=== PATIENT | female | born 1955 | race Caucasian/White ===

== ENCOUNTER 2020-05-31 19:18 | Inpatient (IN) | payer MEDICARE, MEDICAID ==
[~2020-05-31] VITALS: Ht 154.9 cm; Wt 63.8 kg
[2020-05-31] MEDS ORDERED: MORPHINE SULFATE 4 MG/ML CPJ (NOT FOR IM USE) IV STA (19:58)
[2020-05-31] MEDS ORDERED: ONDANSETRON HCL 4MG/2ML INJ IV STA (19:58)
[2020-05-31 20:17] LABS: EOSINOPHILS % 1.8 % (0.0-5.0); HEMATOCRIT. 35.8 % (36.0-48.0); HEMOGLOBIN. 11.9 g/dL (12.0-16.0); LYMPHOCYTES % 27.3 % (20.0-50.0); MEAN CORPUSCULAR HEMOGLOBIN 29.2 pg (28.0-32.0); MEAN PLATELET VOLUME 9.8 fl (7.4-10.4); MONOCYTES % 6.8 % (2.0-8.0); NEUTROPHILS % 63.1 % (40.0-76.0); PLATELET 236 x1000/uL (130-400); RED BLOOD CELL COUNT 4.07 mill/uL (4.2-5.4); RED CELL DISTRIBUTION WIDTH 15.3 % (11.6-14.6)
[2020-05-31 20:24] LABS: CHLORIDE 93 mEq/L (98-107)
[2020-05-31 20:33] LABS: PROTHROMBIN TIME 10.3 sec (9.6-11.0)
[2020-05-31] MEDS ORDERED: ACETAMINOPHEN WITH CODEINE 300/30MG TABLET PO ONE (22:00)
[2020-05-31] MEDS ORDERED: LORAZEPAM 2MG/ML CPJ IV ONE (22:00)
[2020-05-31] MEDS ORDERED: NITROGLYCERIN 0.4MG TABLET SL SL PRN (22:15)
[2020-05-31] MEDS ORDERED: IPRATROPIUM/ALBUTEROL 0.5-3(2.5)MG/3ML NEB NEB PRN (22:15)
[2020-05-31] MEDS ORDERED: DOCUSATE SODIUM 100MG CAPSULE PO PRN (22:15)
[2020-05-31] MEDS ORDERED: DIPHENHYDRAMINE 50MG/ML VIAL IV PRN (22:15)
[2020-05-31] MEDS ORDERED: GUAIFENESIN 200MG/10ML SUGAR FREE UDC PO PRN (22:15)
[2020-05-31] MEDS ORDERED: DEXTROSE 50% WATER 50ML SYRINGE IV PRN (22:15)
[2020-05-31] MEDS ORDERED: MAGNESIUM/ALUMINUM HYDROXIDE/SIMETHICONE 30ML UDC PO PRN (22:15)
[2020-05-31] MEDS ORDERED: TRAMADOL 50MG TABLET PO PRN (22:15)
[2020-05-31] MEDS ORDERED: ACETAMINOPHEN 325MG TABLET PO PRN (22:15)
[2020-06-01] MEDS: CLONIDINE 0.1MG TABLET PO PRN ×2 (01:05→18:38)
[2020-06-01] MEDS ORDERED: CINA30 PO (01:56)
[2020-06-01] MEDS ORDERED: AZOPT EACHEYE (01:56)
[2020-06-01] MEDS ORDERED: ESCI20TA43 PO (01:56)
[2020-06-01] MEDS ORDERED: QUET25TA34 MT (01:56)
[2020-06-01] MEDS ORDERED: NIFE-32 PO (01:56)
[2020-06-01] MEDS ORDERED: SEVE800T8 PO (01:56)
[2020-06-01] MEDS ORDERED: CLON0.3T PO (01:56)
[2020-06-01] MEDS ORDERED: INSLIS SUBCUT (01:58)
[2020-06-01] MEDS ORDERED: INSU100I28 SQ (01:58)
[2020-06-01 01:59] VITALS: BP 191/70
[2020-06-01 04:00] VITALS: BP 165/72
[2020-06-01 04:53] LABS: CREATINE KINASE MB FRACTION 1.9 ng/mL (0.5-3.6)
[2020-06-01] MEDS ORDERED: ERGO500013 PO (06:02)
[2020-06-01] MEDS ORDERED: AZOPT RIGHTEYE ×2 (06:03→06:04)
[2020-06-01] MEDS: BLOOD SUGAR DIAGNOSTIC STRIP TEST SCH ×4 (07:39→20:04)
[2020-06-01] MEDS: INSULIN LISPRO 100 UNITS/ML SUBCUT SCH ×4 (07:40→20:33)
[2020-06-01 08:00] VITALS: BP 190/57
[2020-06-01] MEDS: AMLODIPINE 10MG TABLET PO SCH (09:04)
[2020-06-01] MEDS: FAMOTIDINE 20MG TABLET PO SCH (09:04)
[2020-06-01] MEDS: ZINC SULFATE 220 MG ( 50 ) CAPSULE PO SCH (09:04)
[2020-06-01] MEDS: ASCORBIC ACID 500 MG TABLET PO SCH ×2 (09:04→20:33)
[2020-06-01] MEDS: ACETAMINOPHEN 325MG TABLET PO PRN (09:04)
[2020-06-01] MEDS: ASPIRIN 325MG EC TABLET PO SCH (09:05)
[2020-06-01] MEDS: ENOXAPARIN 30MG/0.3ML SYR SUBCUT SCH (09:05)
[2020-06-01] MEDS: ONDANSETRON HCL 4MG/2ML INJ IV PRN ×3 (09:41→20:00)
[2020-06-01] MEDS ORDERED: INSULIN GLARGINE UD 100 UNITS/ML SYR SUBCUT SCH (10:00)
[2020-06-01 12:00] VITALS: BP 202/65
[2020-06-01] MEDS: MINOXIDIL 2.5MG TABLET PO SCH (12:57)
[2020-06-01] MEDS: BUTALBITAL/ACETAMINOPHEN/CAFFEINE 50/325/40MG TABLET PO PRN (14:53)
[2020-06-01 16:00] VITALS: BP 204/67
[2020-06-01 16:52] LABS: CREATINE KINASE MB FRACTION 2.7 ng/mL (0.5-3.6)
[2020-06-01 20:00] VITALS: BP 103/101
[2020-06-01] MEDS: ATORVASTATIN CALCIUM 40MG TABLET PO SCH (20:33)
[2020-06-02] VITALS (7 sets, daily range): BP systolic 143–190; BP diastolic 44–72
[2020-06-02] MEDS: BUTALBITAL/ACETAMINOPHEN/CAFFEINE 50/325/40MG TABLET PO PRN ×2 (01:53→09:17)
[2020-06-02 06:08] LABS: BASOPHILS % 0.9 % (0.0-2.0); EOSINOPHILS % 1.6 % (0.0-5.0); HEMATOCRIT. 36.3 % (36.0-48.0); HEMOGLOBIN. 12.2 g/dL (12.0-16.0); LYMPHOCYTES % 24.8 % (20.0-50.0); MEAN CORPUSCULAR HEMOGLOBIN 29.2 pg (28.0-32.0); MEAN CORPUSCULAR VOLUME 86.8 fL (81.0-99.0); MEAN PLATELET VOLUME 9.8 fl (7.4-10.4); MONOCYTES % 9.8 % (2.0-8.0); NEUTROPHILS % 62.9 % (40.0-76.0); PLATELET 242 x1000/uL (130-400); RED BLOOD CELL COUNT 4.19 mill/uL (4.2-5.4); RED CELL DISTRIBUTION WIDTH 15.1 % (11.6-14.6)
[2020-06-02] MEDS: BLOOD SUGAR DIAGNOSTIC STRIP TEST SCH ×4 (06:49→20:52)
[2020-06-02] MEDS: INSULIN LISPRO 100 UNITS/ML SUBCUT SCH ×4 (06:53→20:52)
[2020-06-02] MEDS: ONDANSETRON HCL 4MG/2ML INJ IV PRN ×3 (06:59→20:51)
[2020-06-02] MEDS: CLONIDINE 0.1MG TABLET PO PRN (09:09)
[2020-06-02] MEDS: MINOXIDIL 2.5MG TABLET PO SCH (09:09)
[2020-06-02] MEDS: ZINC SULFATE 220 MG ( 50 ) CAPSULE PO SCH (09:09)
[2020-06-02] MEDS: FAMOTIDINE 20MG TABLET PO SCH (09:09)
[2020-06-02] MEDS: ASCORBIC ACID 500 MG TABLET PO SCH ×2 (09:09→20:51)
[2020-06-02] MEDS: ASPIRIN 325MG EC TABLET PO SCH (09:09)
[2020-06-02] MEDS: AMLODIPINE 10MG TABLET PO SCH (09:10)
[2020-06-02] MEDS: METOPROLOL TARTRATE 25MG TABLET PO SCH ×2 (09:17→20:57)
[2020-06-02] MEDS: ENOXAPARIN 30MG/0.3ML SYR SUBCUT SCH (09:18)
[2020-06-02] MEDS: INSULIN GLARGINE UD 100 UNITS/ML SYR SUBCUT SCH (10:00)
[2020-06-02] MEDS ORDERED: MORPHINE SULFATE 4 MG/ML CPJ (NOT FOR IM USE) IV NR (11:00)
[2020-06-02] MEDS: ACETAMINOPHEN 325MG TABLET PO PRN (20:51)
[2020-06-02] MEDS: ZOLPIDEM TARTRATE 5MG TABLET PO PRN (20:51)
[2020-06-02] MEDS: ATORVASTATIN CALCIUM 40MG TABLET PO SCH (20:51)
[2020-06-03] VITALS: BP 189/64
[2020-06-03] MEDS: CLONIDINE 0.1MG TABLET PO PRN ×2 (00:55→06:41)
[2020-06-03] MEDS: BUTALBITAL/ACETAMINOPHEN/CAFFEINE 50/325/40MG TABLET PO PRN ×2 (01:00→14:02)
[2020-06-03 04:00] VITALS: BP 196/54
[2020-06-03] MEDS: INSULIN LISPRO 100 UNITS/ML SUBCUT SCH ×4 (06:42→20:33)
[2020-06-03] MEDS: BLOOD SUGAR DIAGNOSTIC STRIP TEST SCH ×4 (06:42→20:33)
[2020-06-03 08:00] VITALS: BP 146/55
[2020-06-03 08:37] LABS: BASOPHILS % 0.8 % (0.0-2.0); EOSINOPHILS % 4.1 % (0.0-5.0); HEMATOCRIT. 38.1 % (36.0-48.0); HEMOGLOBIN. 12.6 g/dL (12.0-16.0); LYMPHOCYTES % 30.5 % (20.0-50.0); MEAN CORPUSCULAR HEMOGLOBIN 29.1 pg (28.0-32.0); MEAN PLATELET VOLUME 9.7 fl (7.4-10.4); MONOCYTES % 10.4 % (2.0-8.0); NEUTROPHILS % 54.2 % (40.0-76.0); PLATELET 239 x1000/uL (130-400); RED BLOOD CELL COUNT 4.33 mill/uL (4.2-5.4); RED CELL DISTRIBUTION WIDTH 15.4 % (11.6-14.6)
[2020-06-03 09:59] LABS: PHOSPHORUS 7.2 mg/dL (2.5-4.9)
[2020-06-03] MEDS: INSULIN GLARGINE UD 100 UNITS/ML SYR SUBCUT SCH (10:00)
[2020-06-03] MEDS: ZINC SULFATE 220 MG ( 50 ) CAPSULE PO SCH (10:10)
[2020-06-03] MEDS: ASPIRIN 325MG EC TABLET PO SCH (10:11)
[2020-06-03] MEDS: AMLODIPINE 10MG TABLET PO SCH (10:11)
[2020-06-03] MEDS: ASCORBIC ACID 500 MG TABLET PO SCH ×2 (10:11→20:31)
[2020-06-03] MEDS: MINOXIDIL 2.5MG TABLET PO SCH ×2 (10:11→17:23)
[2020-06-03] MEDS: FAMOTIDINE 20MG TABLET PO SCH (10:12)
[2020-06-03] MEDS: ONDANSETRON HCL 4MG/2ML INJ IV PRN ×2 (10:12→15:19)
[2020-06-03] MEDS: METOPROLOL TARTRATE 25MG TABLET PO SCH ×2 (10:12→20:32)
[2020-06-03] MEDS: ENOXAPARIN 30MG/0.3ML SYR SUBCUT SCH (10:12)
[2020-06-03 12:00] VITALS: BP 156/50
[2020-06-03 16:00] VITALS: BP 133/47
[2020-06-03] MEDS: SEVELAMER CARBONATE 800 MG TABLET PO SCH (17:22)
[2020-06-03 20:00] VITALS: BP 174/52
[2020-06-03] MEDS: ATORVASTATIN CALCIUM 40MG TABLET PO SCH (20:31)
[2020-06-04] VITALS (7 sets, daily range): BP systolic 121–190; BP diastolic 48–74
[2020-06-04] MEDS: ZOLPIDEM TARTRATE 5MG TABLET PO PRN (00:31)
[2020-06-04] MEDS: ONDANSETRON HCL 4MG/2ML INJ IV PRN ×3 (00:31→21:53)
[2020-06-04] MEDS: MINOXIDIL 2.5MG TABLET PO SCH ×2 (06:13→17:14)
[2020-06-04] MEDS: INSULIN LISPRO 100 UNITS/ML SUBCUT SCH ×4 (06:14→21:50)
[2020-06-04] MEDS: BLOOD SUGAR DIAGNOSTIC STRIP TEST SCH ×4 (06:15→21:50)
[2020-06-04 08:47] LABS: BASOPHILS % 0.7 % (0.0-2.0); EOSINOPHILS % 2.8 % (0.0-5.0); HEMATOCRIT. 37.3 % (36.0-48.0); HEMOGLOBIN. 12.5 g/dL (12.0-16.0); LYMPHOCYTES % 23.6 % (20.0-50.0); MEAN CORPUSCULAR HEMOGLOBIN 29.5 pg (28.0-32.0); MEAN CORPUSCULAR VOLUME 87.9 fL (81.0-99.0); MEAN PLATELET VOLUME 9.5 fl (7.4-10.4); MONOCYTES % 9.8 % (2.0-8.0); NEUTROPHILS % 63.1 % (40.0-76.0); PLATELET 228 x1000/uL (130-400); RED BLOOD CELL COUNT 4.24 mill/uL (4.2-5.4); RED CELL DISTRIBUTION WIDTH 15.3 % (11.6-14.6)
[2020-06-04] MEDS ORDERED: METOCLOPRAMIDE HCL 10MG/2ML VIAL IV NR (09:00)
[2020-06-04] MEDS: ASPIRIN 325MG EC TABLET PO SCH (09:41)
[2020-06-04] MEDS: METOPROLOL TARTRATE 25MG TABLET PO SCH (09:42)
[2020-06-04] MEDS: FAMOTIDINE 20MG TABLET PO SCH (09:42)
[2020-06-04] MEDS: SEVELAMER CARBONATE 800 MG TABLET PO SCH ×3 (09:42→17:14)
[2020-06-04] MEDS: ASCORBIC ACID 500 MG TABLET PO SCH ×2 (09:42→20:52)
[2020-06-04] MEDS: AMLODIPINE 10MG TABLET PO SCH (09:42)
[2020-06-04] MEDS: ZINC SULFATE 220 MG ( 50 ) CAPSULE PO SCH (09:43)
[2020-06-04] MEDS: ENOXAPARIN 30MG/0.3ML SYR SUBCUT SCH (09:44)
[2020-06-04] MEDS: BUTALBITAL/ACETAMINOPHEN/CAFFEINE 50/325/40MG TABLET PO PRN ×2 (10:21→15:13)
[2020-06-04] MEDS: INSULIN GLARGINE UD 100 UNITS/ML SYR SUBCUT SCH (10:22)
[2020-06-04 13:49] LABS: PHOSPHORUS 4.9 mg/dL (2.5-4.9)
[2020-06-04] MEDS: CLONIDINE 0.1MG TABLET PO PRN (17:14)
[2020-06-04] MEDS: ATORVASTATIN CALCIUM 40MG TABLET PO SCH (20:52)
[2020-06-04] MEDS: METOPROLOL TARTRATE 50MG TABLET PO SCH (20:54)
[2020-06-05] VITALS: BP 160/52
[2020-06-05] MEDS: ONDANSETRON HCL 4MG/2ML INJ IV PRN ×3 (03:48→13:00)
[2020-06-05 04:00] VITALS: BP 170/53
[2020-06-05] MEDS: CLONIDINE 0.1MG TABLET PO PRN (04:29)
[2020-06-05] MEDS: ACETAMINOPHEN 325MG TABLET PO PRN ×2 (06:11→16:00)
[2020-06-05 06:24] LABS: EOSINOPHILS % 4.8 % (0.0-5.0); HEMATOCRIT. 36.6 % (36.0-48.0); HEMOGLOBIN. 12.3 g/dL (12.0-16.0); LYMPHOCYTES % 31.3 % (20.0-50.0); MEAN CORPUSCULAR HEMOGLOBIN 29.4 pg (28.0-32.0); MEAN CORPUSCULAR VOLUME 87.3 fL (81.0-99.0); MEAN PLATELET VOLUME 9.8 fl (7.4-10.4); MONOCYTES % 10.4 % (2.0-8.0); NEUTROPHILS % 52.5 % (40.0-76.0); PLATELET 238 x1000/uL (130-400); RED BLOOD CELL COUNT 4.19 mill/uL (4.2-5.4); RED CELL DISTRIBUTION WIDTH 15.3 % (11.6-14.6)
[2020-06-05] MEDS: BLOOD SUGAR DIAGNOSTIC STRIP TEST SCH ×2 (07:01→12:55)
[2020-06-05] MEDS: INSULIN LISPRO 100 UNITS/ML SUBCUT SCH ×2 (07:02→12:40)
[2020-06-05] MEDS: MINOXIDIL 2.5MG TABLET PO SCH (07:07)
[2020-06-05 07:18] LABS: PHOSPHORUS 6.1 mg/dL (2.5-4.9)
[2020-06-05 08:00] VITALS: BP 188/60
[2020-06-05] MEDS: ENOXAPARIN 30MG/0.3ML SYR SUBCUT SCH (08:39)
[2020-06-05] MEDS: ASPIRIN 325MG EC TABLET PO SCH (08:39)
[2020-06-05] MEDS: ZINC SULFATE 220 MG ( 50 ) CAPSULE PO SCH (08:40)
[2020-06-05] MEDS: ASCORBIC ACID 500 MG TABLET PO SCH (08:40)
[2020-06-05] MEDS: SEVELAMER CARBONATE 800 MG TABLET PO SCH ×2 (08:40→15:15)
[2020-06-05] MEDS: METOPROLOL TARTRATE 50MG TABLET PO SCH (08:40)
[2020-06-05] MEDS: FAMOTIDINE 20MG TABLET PO SCH (08:40)
[2020-06-05] MEDS: AMLODIPINE 10MG TABLET PO SCH (08:40)
[2020-06-05] MEDS: BUTALBITAL/ACETAMINOPHEN/CAFFEINE 50/325/40MG TABLET PO PRN ×2 (08:41→14:25)
[2020-06-05] MEDS: INSULIN GLARGINE UD 100 UNITS/ML SYR SUBCUT SCH (10:42)
[2020-06-05 12:00] VITALS: BP 160/55
[2020-06-05 15:52] VITALS: BP 133/53
== END 2020-06-05 17:50 | disposition home or self-care (01) | DRG 91 ==
LOC: ER 19:18 → EDBEDREQTM 22:05 → EDBEDREQ 22:05 → SUPCPDRO 22:11 → MICUSO 23:16 → 8WST 23:34
PROVIDERS: ADMIT Internal Medicine; ATTEND Internal Medicine
PROC: 5A1D70Z Performance of Urinary Filtration, Intermittent, Less than 6 Hours Per Day (ICD-10-PCS; principal; 2020-06-01)
PROC: 5A1D70Z Performance of Urinary Filtration, Intermittent, Less than 6 Hours Per Day (ICD-10-PCS; 2020-06-03)
PROC: 5A1D70Z Performance of Urinary Filtration, Intermittent, Less than 6 Hours Per Day (ICD-10-PCS; 2020-06-05)
DX: G92 Toxic encephalopathy (principal); N18.6 End stage renal disease; I16.1 Hypertensive emergency; E87.1 Hypo-osmolality and hyponatremia; N25.81 Secondary hyperparathyroidism of renal origin; I12.0 Hypertensive chronic kidney disease with stage 5 chronic kidney disease or end stage renal disease; M94.0 Chondrocostal junction syndrome [Tietze]; E11.22 Type 2 diabetes mellitus with diabetic chronic kidney disease; D63.8 Anemia in other chronic diseases classified elsewhere; E78.5 Hyperlipidemia, unspecified; Z88.0 Allergy status to penicillin; Z79.4 Long term (current) use of insulin; Z79.899 Other long term (current) drug therapy; Z86.73 Personal history of transient ischemic attack (TIA), and cerebral infarction without residual deficits; Z83.3 Family history of diabetes mellitus; Z82.49 Family history of ischemic heart disease and other diseases of the circulatory system; Z99.2 Dependence on renal dialysis; G43.909 Migraine, unspecified, not intractable, without status migrainosus
CPT/HCPCS: 36415; 70551; 71045; 80048; 80053; 80061; 82550; 82553; 82962; 83036; 83735; 84100; 84484; 85025; 85651; 93005; 93306; 93970; 97162; 97166; 97530; 99291; J1650; J1815; J2060; J2270; J2405; J2765

== ENCOUNTER 2021-07-02 18:31 | Inpatient (IN) | payer MEDICARE, MEDICAID ==
[~2021-07-02] VITALS: Ht 165.1 cm; Wt 61.7 kg
[~2021-07-02 18:31] MED LIST: AZOPT RIGHTEYE; CINA30 PO; CLON0.3T PO; ERGO1250 PO; ESCI20TA37 PO; INSLIS SUBCUT; INSU100I28 SQ; NIFE-32 PO; QUET25TA36 MT; SEVE800T8 PO
[2021-07-02] MEDS ORDERED: LIDOCAINE HCL/EPINEPHRINE 1%-EPI 1:100,000 20 ML VIAL INFIL ONE (19:45)
[2021-07-02] MEDS ORDERED: LIDOCAINE HCL/PF 1% 10 MG/ML 5ML VIAL INFIL ONE (19:45)
[2021-07-02] MEDS ORDERED: BACITRACIN ZINC OINT UDPKT TOP ONE (19:45)
[2021-07-02] MEDS ORDERED: TETANUS, DIPHTHERIA, PERTUSSIS VAC/PF 0.5ML (>10YR OLD) IM ONE (19:45)
[2021-07-02 20:10] LABS: HEMATOCRIT. 26.6 % (36.0-48.0); HEMOGLOBIN. 8.8 g/dL (12.0-16.0); MEAN CORPUSCULAR HEMOGLOBIN 29.9 pg (28.0-32.0); MEAN CORPUSCULAR VOLUME 90.7 fL (81.0-99.0); MEAN PLATELET VOLUME 8.8 fl (7.4-10.4); PLATELET 484 x1000/uL (130-400); RED BLOOD CELL COUNT 2.93 mill/uL (4.2-5.4); RED CELL DISTRIBUTION WIDTH 16.5 % (11.6-14.6)
[2021-07-02 20:14] LABS: CHLORIDE 95 mEq/L (98-107)
[2021-07-02 20:22] LABS: INR 1.1; PARTIAL THROMBOPLASTIN TIME 40.1 sec (23.4-31.0); PROTHROMBIN TIME 11.9 sec (9.6-11.0)
[2021-07-02 20:42] LABS: PLATELET ESTIMATE INCREASED
[2021-07-02] MEDS ORDERED: OXYMETAZOLINE HCL NASAL SPRAY 15ML BOTHNSTRLS SCH (21:00)
[2021-07-02] MEDS ORDERED: LEVOFLOXACIN 750MG PREMIX 150 ML IV ONE (21:45)
[2021-07-03 02:45] VITALS: BP 150/88
[2021-07-03] MEDS ORDERED: BISACODYL 10MG SUPP PR PRN (04:45)
[2021-07-03 06:00] VITALS: BP 161/56
[2021-07-03 08:00] VITALS: BP 163/56
[2021-07-03] MEDS ORDERED: LEVOFLOXACIN 500MG PREMIX 100 ML IV SCH (09:30)
[2021-07-03] MEDS ORDERED: NALOXONE HCL 0.4MG/ML VIAL IV PRN (09:30)
[2021-07-03] MEDS ORDERED: DEXTROSE 50% WATER 50ML SYRINGE IV PRN (09:30)
[2021-07-03 12:00] VITALS: BP 127/44
[2021-07-03] MEDS ORDERED: VANCOMYCIN 1500MG in DEXTROSE 5% WATER 250ML IV SCH (12:00)
[2021-07-03] MEDS: BLOOD SUGAR DIAGNOSTIC STRIP TEST SCH ×3 (12:03→20:53)
[2021-07-03] MEDS: INSULIN LISPRO 100 UNITS/ML SUBCUT SCH ×3 (12:41→20:53)
[2021-07-03] MEDS: MORPHINE SULFATE 2 MG/ML CPJ (NOT FOR IM USE) IV PRN ×2 (12:45→18:43)
[2021-07-03 13:29] LABS: HEMATOCRIT 24.8 % (36.0-48.0); HEMOGLOBIN 8.1 g/dL (12.0-16.0); MEAN CORPUSCULAR HEMOGLOBIN 29.9 pg (28.0-32.0); MEAN CORPUSCULAR VOLUME 91.4 fL (81.0-99.0); PLATELET 433 x1000/uL (130-400); RED BLOOD CELL COUNT 2.71 mill/uL (4.2-5.4); RED CELL DISTRIBUTION WIDTH 16.8 % (11.6-14.6)
[2021-07-03 16:00] VITALS: BP 123/63
[2021-07-03 17:33] LABS: HEPATITIS B SURFACE ANTIGEN NEGATIVE
[2021-07-03 20:00] VITALS: BP 170/54
[2021-07-03] MEDS: HYDRALAZINE 20MG/ML VIAL IV PRN (20:53)
[2021-07-04] VITALS: BP 176/59
[2021-07-04] MEDS: MORPHINE SULFATE 2 MG/ML CPJ (NOT FOR IM USE) IV PRN ×4 (00:46→20:25)
[2021-07-04 04:00] VITALS: BP 169/58
[2021-07-04] MEDS: HYDRALAZINE 20MG/ML VIAL IV PRN (05:05)
[2021-07-04] MEDS: INSULIN LISPRO 100 UNITS/ML SUBCUT SCH ×4 (06:21→21:00)
[2021-07-04] MEDS: BLOOD SUGAR DIAGNOSTIC STRIP TEST SCH ×4 (06:21→21:00)
[2021-07-04 06:54] LABS: HEMOGLOBIN. 7.4 g/dL (12.0-16.0); MEAN CORPUSCULAR HEMOGLOBIN 29.2 pg (28.0-32.0); MEAN CORPUSCULAR VOLUME 90.4 fL (81.0-99.0); MEAN PLATELET VOLUME 9.1 fl (7.4-10.4); PLATELET 425 x1000/uL (130-400); RED BLOOD CELL COUNT 2.55 mill/uL (4.2-5.4); RED CELL DISTRIBUTION WIDTH 16.6 % (11.6-14.6)
[2021-07-04 07:03] LABS: PHOSPHORUS 3.6 mg/dL (2.5-4.9)
[2021-07-04 08:00] VITALS: BP 146/46
[2021-07-04] MEDS ORDERED: AMLODIPINE 5MG TABLET PO SCH (09:00)
[2021-07-04] MEDS ORDERED: VANCOMYCIN 750 MG PREMIX 150 ML IV SCH (15:00)
[2021-07-04 16:50] LABS: PLATELET ESTIMATE INCREASED
[2021-07-04 20:53] VITALS: BP 154/61
[2021-07-04] MEDS ORDERED: EPOETIN ALFA-EPBX 4,000 UNIT/ML VIAL SUBCUT SCH (21:00)
[2021-07-04] MEDS ORDERED: LEVOFLOXACIN 250MG PREMIX 50 ML IV SCH (21:00)
[2021-07-04] MEDS: LEVOFLOXACIN 250MG PREMIX 50 ML IV SCH (23:51)
[2021-07-05] VITALS (12 sets, daily range): BP systolic 103–182; BP diastolic 34–57
[2021-07-05] MEDS: HYDRALAZINE 20MG/ML VIAL IV PRN ×4 (00:55→21:13)
[2021-07-05] MEDS: MORPHINE SULFATE 2 MG/ML CPJ (NOT FOR IM USE) IV PRN ×3 (03:56→18:49)
[2021-07-05] MEDS: INSULIN LISPRO 100 UNITS/ML SUBCUT SCH ×4 (06:22→21:00)
[2021-07-05] MEDS: BLOOD SUGAR DIAGNOSTIC STRIP TEST SCH ×4 (06:22→21:11)
[2021-07-05 06:58] LABS: HEMATOCRIT. 21.4 % (36.0-48.0); MEAN CORPUSCULAR HEMOGLOBIN 29.2 pg (28.0-32.0); MEAN PLATELET VOLUME 9.3 fl (7.4-10.4); PLATELET 384 x1000/uL (130-400); RED CELL DISTRIBUTION WIDTH 16.9 % (11.6-14.6)
[2021-07-05 07:27] LABS: HEMOGLOBIN. 6.7 g/dL (12.0-16.0)
[2021-07-05] MEDS: AMLODIPINE 5MG TABLET PO SCH ×2 (11:00→21:00)
[2021-07-05] MEDS: LISINOPRIL 20MG TABLET PO SCH (11:30)
[2021-07-05 12:41] LABS: PLATELET ESTIMATE NORMAL
[2021-07-05 19:55] LABS: HEMATOCRIT 27.5 % (36.0-48.0); HEMOGLOBIN 8.7 g/dL (12.0-16.0)
[2021-07-05 19:59] LABS: INR 1.2; PROTHROMBIN TIME 12.4 sec (9.6-11.0)
[2021-07-06] VITALS: BP_SYST 130; BP_SYST 191; BP_DIAS 51; BP_DIAS 59
[2021-07-06] MEDS: MORPHINE SULFATE 2 MG/ML CPJ (NOT FOR IM USE) IV PRN ×3 (00:43→18:28)
[2021-07-06 04:00] VITALS: BP 179/53
[2021-07-06] MEDS: BLOOD SUGAR DIAGNOSTIC STRIP TEST SCH ×4 (06:40→21:00)
[2021-07-06] MEDS: INSULIN LISPRO 100 UNITS/ML SUBCUT SCH ×4 (07:10→21:00)
[2021-07-06 08:00] VITALS: BP 194/59
[2021-07-06] MEDS: AMLODIPINE 5MG TABLET PO SCH ×2 (09:00→22:12)
[2021-07-06] MEDS: LISINOPRIL 20MG TABLET PO SCH (09:00)
[2021-07-06] MEDS ORDERED: IOHEXOL-350 100 ML BOTTLE ONE ×2 (09:53→09:57)
[2021-07-06 11:27] LABS: HEMOGLOBIN. 8.8 g/dL (12.0-16.0); MEAN CORPUSCULAR VOLUME 91.7 fL (81.0-99.0); MEAN PLATELET VOLUME 8.5 fl (7.4-10.4); PLATELET 451 x1000/uL (130-400); RED BLOOD CELL COUNT 2.94 mill/uL (4.2-5.4); RED CELL DISTRIBUTION WIDTH 16.2 % (11.6-14.6)
[2021-07-06 11:42] LABS: PHOSPHORUS 4.2 mg/dL (2.5-4.9)
[2021-07-06 12:00] VITALS: BP 148/125
[2021-07-06 12:57] LABS: PLATELET ESTIMATE INCREASED
[2021-07-06 16:00] VITALS: BP 181/64
[2021-07-06] MEDS: HYDRALAZINE 20MG/ML VIAL IV PRN (17:23)
[2021-07-06 20:00] VITALS: BP_SYST 135; BP_SYST 187; BP_DIAS 54; BP_DIAS 57
[2021-07-06] MEDS: EPOETIN ALFA-EPBX 10,000 UNIT/ML VIAL SUBCUT SCH (22:22)
[2021-07-07] VITALS: BP 145/60
[2021-07-07] MEDS: LEVOFLOXACIN 250MG PREMIX 50 ML IV SCH (01:38)
[2021-07-07] MEDS: ACETAMINOPHEN 650MG SUPP PR PRN (01:39)
[2021-07-07 04:00] VITALS: BP 122/66
[2021-07-07] MEDS: MORPHINE SULFATE 2 MG/ML CPJ (NOT FOR IM USE) IV PRN ×2 (05:28→11:39)
[2021-07-07] MEDS: BLOOD SUGAR DIAGNOSTIC STRIP TEST SCH ×4 (06:40→21:28)
[2021-07-07] MEDS: INSULIN LISPRO 100 UNITS/ML SUBCUT SCH ×4 (07:10→21:00)
[2021-07-07 07:45] LABS: PHOSPHORUS 3.2 mg/dL (2.5-4.9)
[2021-07-07 07:51] LABS: HEMATOCRIT. 29.1 % (36.0-48.0); HEMOGLOBIN. 9.3 g/dL (12.0-16.0); MEAN CORPUSCULAR HEMOGLOBIN 29.2 pg (28.0-32.0); MEAN CORPUSCULAR VOLUME 91.5 fL (81.0-99.0); MEAN PLATELET VOLUME 9.2 fl (7.4-10.4); PLATELET 465 x1000/uL (130-400); RED BLOOD CELL COUNT 3.18 mill/uL (4.2-5.4); RED CELL DISTRIBUTION WIDTH 16.6 % (11.6-14.6)
[2021-07-07 08:00] VITALS: BP 192/60
[2021-07-07] MEDS: LISINOPRIL 20MG TABLET PO SCH (08:35)
[2021-07-07] MEDS: AMLODIPINE 5MG TABLET PO SCH ×2 (08:35→21:25)
[2021-07-07 10:44] LABS: PLATELET ESTIMATE SLIGHTLY INCREASED
[2021-07-07 12:00] VITALS: BP 186/79
[2021-07-07] MEDS: LORAZEPAM 2MG/ML CPJ IV PRN (12:45)
[2021-07-07] MEDS ORDERED: HYDRALAZINE HCL 100MG TABLET PO SCH (13:00)
[2021-07-07] MEDS: AZTREONAM 1 G in DEXTROSE 5% WATER 50 ML IV SCH (15:40)
[2021-07-07 16:00] VITALS: BP 163/96
[2021-07-07] MEDS: HYDRALAZINE 20MG/ML VIAL IV PRN (18:58)
[2021-07-07 20:00] VITALS: BP 156/51
[2021-07-07] MEDS: HYDRALAZINE HCL 100MG TABLET PO SCH (22:06)
[2021-07-07] MEDS: CLONIDINE 0.2MG TABLET PO SCH (22:06)
[2021-07-07 22:34] LABS: HEPATITIS B SURFACE ANTIGEN NEGATIVE
[2021-07-08] VITALS: BP 158/52
[2021-07-08] MEDS: ACETAMINOPHEN 650MG SUPP PR PRN (01:42)
[2021-07-08] MEDS: MORPHINE SULFATE 2 MG/ML CPJ (NOT FOR IM USE) IV PRN ×2 (03:39→21:22)
[2021-07-08] MEDS: LORAZEPAM 2MG/ML CPJ IV PRN (04:07)
[2021-07-08] MEDS: HYDRALAZINE 20MG/ML VIAL IV PRN (04:07)
[2021-07-08 04:10] VITALS: BP 177/60
[2021-07-08 05:48] LABS: HEMOGLOBIN. 9.2 g/dL (12.0-16.0); MEAN CORPUSCULAR HEMOGLOBIN 29.2 pg (28.0-32.0); MEAN CORPUSCULAR VOLUME 91.7 fL (81.0-99.0); MEAN PLATELET VOLUME 8.9 fl (7.4-10.4); PLATELET 441 x1000/uL (130-400); RED BLOOD CELL COUNT 3.16 mill/uL (4.2-5.4); RED CELL DISTRIBUTION WIDTH 16.9 % (11.6-14.6)
[2021-07-08] MEDS: CLONIDINE 0.2MG TABLET PO SCH ×3 (06:00→21:25)
[2021-07-08 06:15] LABS: PHOSPHORUS 3.3 mg/dL (2.5-4.9)
[2021-07-08] MEDS: BLOOD SUGAR DIAGNOSTIC STRIP TEST SCH ×4 (06:21→21:22)
[2021-07-08] MEDS: INSULIN LISPRO 100 UNITS/ML SUBCUT SCH ×4 (06:21→21:00)
[2021-07-08 08:00] VITALS: BP 179/62
[2021-07-08 08:27] LABS: PLATELET ESTIMATE INCREASED
[2021-07-08] MEDS: LISINOPRIL 20MG TABLET PO SCH (08:27)
[2021-07-08] MEDS: HYDRALAZINE HCL 100MG TABLET PO SCH ×3 (08:27→21:25)
[2021-07-08] MEDS: AMLODIPINE 5MG TABLET PO SCH ×2 (08:27→21:00)
[2021-07-08] MEDS ORDERED: NALOXONE HCL 0.4MG/ML VIAL IV PRN (10:00)
[2021-07-08 12:00] VITALS: BP 174/55
[2021-07-08] MEDS: SPIRONOLACTONE 25MG TABLET PO SCH ×2 (14:45→16:52)
[2021-07-08] MEDS: AZTREONAM 1 G in DEXTROSE 5% WATER 50 ML IV SCH (15:48)
[2021-07-08 16:00] VITALS: BP 160/49
[2021-07-08 20:00] VITALS: BP 164/71
[2021-07-09] VITALS (7 sets, daily range): BP systolic 111–173; BP diastolic 46–62
[2021-07-09] MEDS: HYDRALAZINE 20MG/ML VIAL IV PRN (01:06)
[2021-07-09] MEDS: MORPHINE SULFATE 2 MG/ML CPJ (NOT FOR IM USE) IV PRN ×2 (04:45→11:11)
[2021-07-09] MEDS: SPIRONOLACTONE 25MG TABLET PO SCH ×2 (05:16→16:49)
[2021-07-09] MEDS: CLONIDINE 0.2MG TABLET PO SCH ×2 (05:16→14:07)
[2021-07-09] MEDS: HYDRALAZINE HCL 100MG TABLET PO SCH ×3 (05:16→22:18)
[2021-07-09] MEDS: BLOOD SUGAR DIAGNOSTIC STRIP TEST SCH ×4 (05:41→21:00)
[2021-07-09] MEDS: INSULIN LISPRO 100 UNITS/ML SUBCUT SCH ×4 (05:41→22:17)
[2021-07-09 06:58] LABS: INR 1.1; PROTHROMBIN TIME 12.2 sec (9.6-11.0)
[2021-07-09 06:59] LABS: HEMATOCRIT. 28.2 % (36.0-48.0); HEMOGLOBIN. 9.3 g/dL (12.0-16.0); MEAN PLATELET VOLUME 8.4 fl (7.4-10.4); PLATELET 464 x1000/uL (130-400); RED CELL DISTRIBUTION WIDTH 17.2 % (11.6-14.6)
[2021-07-09 07:05] LABS: PHOSPHORUS 2.4 mg/dL (2.5-4.9)
[2021-07-09] MEDS: AMLODIPINE 5MG TABLET PO SCH ×2 (09:24→22:18)
[2021-07-09] MEDS: LISINOPRIL 20MG TABLET PO SCH (09:24)
[2021-07-09] MEDS ORDERED: IODIXANOL 320MG/ML 100 ML BOTTLE IV ONE (12:15)
[2021-07-09] MEDS ORDERED: LIDOCAINE HCL 1% 20ML VIAL (Pyxis) INJ ONE (12:15)
[2021-07-09] MEDS ORDERED: FENTANYL CITRATE/PF 50MCG/ML 2ML VIAL ONE (12:24)
[2021-07-09] MEDS ORDERED: MIDAZOLAM HCL 5 MG/5 ML VIAL ONE (12:24)
[2021-07-09] MEDS ORDERED: IOHEXOL-300 100 ML BOTTLE ONE ×2 (12:40→23:37)
[2021-07-09] MEDS ORDERED: HEPARIN SODIUM 1,000 UNIT/1ML VIAL IV ONE (13:37)
[2021-07-09] MEDS: AZTREONAM 1 G in DEXTROSE 5% WATER 50 ML IV SCH (15:02)
[2021-07-09] MEDS ORDERED: SODIUM PHOS,M-BASIC-D-BASIC 15 MM in DEXT 5% WATER 245 ML IV SCH (16:00)
[2021-07-09 18:36] LABS: PLATELET ESTIMATE INCREASED
[2021-07-09] MEDS: EPOETIN ALFA-EPBX 10,000 UNIT/ML VIAL SUBCUT SCH (22:19)
[2021-07-10] VITALS (7 sets, daily range): BP systolic 128–184; BP diastolic 53–100
[2021-07-10] MEDS: METRONIDAZOLE 500 MG PREMIX 100 ML IV SCH ×4 (00:05→21:10)
[2021-07-10] MEDS: CLONIDINE 0.2MG TABLET PO SCH ×4 (00:24→21:10)
[2021-07-10 05:53] LABS: PHOSPHORUS 3.9 mg/dL (2.5-4.9)
[2021-07-10] MEDS: HYDRALAZINE HCL 100MG TABLET PO SCH ×3 (05:56→21:12)
[2021-07-10] MEDS: BLOOD SUGAR DIAGNOSTIC STRIP TEST SCH ×4 (05:57→21:12)
[2021-07-10] MEDS: INSULIN LISPRO 100 UNITS/ML SUBCUT SCH ×4 (05:57→21:00)
[2021-07-10] MEDS: SPIRONOLACTONE 25MG TABLET PO SCH ×2 (07:15→15:30)
[2021-07-10 09:07] LABS: IMMUNOGLOBULIN A 347 mg/dL (87-352); IMMUNOGLOBULIN G 1974 mg/dL (586-1602); IMMUNOGLOBULIN M 404 mg/dL (26-217); VITAMIN D 25-OH 27.9 ng/mL (30.0-100.0)
[2021-07-10] MEDS: AMLODIPINE 5MG TABLET PO SCH ×2 (09:40→21:11)
[2021-07-10] MEDS: LISINOPRIL 20MG TABLET PO SCH (09:40)
[2021-07-10] MEDS: MORPHINE SULFATE 2 MG/ML CPJ (NOT FOR IM USE) IV PRN (09:40)
[2021-07-10] MEDS ORDERED: LIDOCAINE HCL 1% 20ML VIAL (Pyxis) INJ INFIL NR (10:43)
[2021-07-10] MEDS ORDERED: LIDOCAINE HCL 2% JELLY 5ML TOP NR (12:00)
[2021-07-10 12:11] LABS: HEMATOCRIT. 28.3 % (36.0-48.0); HEMOGLOBIN. 9.1 g/dL (12.0-16.0); MEAN CORPUSCULAR HEMOGLOBIN 29.3 pg (28.0-32.0); MEAN PLATELET VOLUME 8.2 fl (7.4-10.4); PLATELET 427 x1000/uL (130-400); RED BLOOD CELL COUNT 3.12 mill/uL (4.2-5.4); RED CELL DISTRIBUTION WIDTH 17.2 % (11.6-14.6)
[2021-07-10] MEDS: HYDRALAZINE 20MG/ML VIAL IV PRN (12:11)
[2021-07-10 12:18] LABS: MEAN CORPUSCULAR VOLUME 90.7 fL (81.0-99.0)
[2021-07-10 13:07] LABS: A/G RATIO 0.6 (0.7-1.7); ALBUMIN 2.7 g/dL (2.9-4.4); ALPHA-1-GLOBULIN 0.4 g/dL (0.0-0.4); GAMMA GLOBULINS 1.9 g/dL (0.4-1.8); GLOBULIN TOTAL 4.4 g/dL (2.2-3.9); M-SPIKE Not Observed g/dL (Not Observed); TOTAL PROTEIN SERUM 7.1 g/dL (6.0-8.5)
[2021-07-10] MEDS: AZTREONAM 1 G in DEXTROSE 5% WATER 50 ML IV SCH (15:29)
[2021-07-10] MEDS: ACETAMINOPHEN 650MG SUPP PR PRN (15:30)
[2021-07-10] MEDS: CLONIDINE 0.1MG TABLET PO PRN (15:30)
[2021-07-10] MEDS: SODIUM HYPOCHLORITE 0.125% 473ML SOLUTION TOP SCH (18:07)
[2021-07-10] MEDS: MINOXIDIL 2.5MG TABLET PO SCH (21:11)
[2021-07-10 22:11] LABS: PLATELET ESTIMATE INCREASED
[2021-07-11] VITALS: BP 132/77
[2021-07-11 04:00] VITALS: BP 146/92
[2021-07-11] MEDS: HYDROCODONE/ACETAMINOPHEN 5/325MG TABLET PO PRN ×5 (04:30→15:32)
[2021-07-11] MEDS: HYDRALAZINE HCL 100MG TABLET PO SCH ×2 (04:59→14:32)
[2021-07-11] MEDS: CLONIDINE 0.2MG TABLET PO SCH ×3 (04:59→21:24)
[2021-07-11] MEDS: METRONIDAZOLE 500 MG PREMIX 100 ML IV SCH ×3 (05:00→20:43)
[2021-07-11] MEDS: BLOOD SUGAR DIAGNOSTIC STRIP TEST SCH ×4 (05:42→20:45)
[2021-07-11] MEDS: INSULIN LISPRO 100 UNITS/ML SUBCUT SCH ×4 (05:42→21:13)
[2021-07-11] MEDS: MORPHINE SULFATE 2 MG/ML CPJ (NOT FOR IM USE) IV PRN ×3 (06:26→20:44)
[2021-07-11 07:30] LABS: HEMATOCRIT. 28.5 % (36.0-48.0); MEAN CORPUSCULAR HEMOGLOBIN 29.3 pg (28.0-32.0); MEAN CORPUSCULAR VOLUME 92.4 fL (81.0-99.0); MEAN PLATELET VOLUME 8.6 fl (7.4-10.4); PLATELET 385 x1000/uL (130-400); RED BLOOD CELL COUNT 3.08 mill/uL (4.2-5.4); RED CELL DISTRIBUTION WIDTH 17.5 % (11.6-14.6)
[2021-07-11 07:34] LABS: PHOSPHORUS 3.2 mg/dL (2.5-4.9)
[2021-07-11 08:00] VITALS: BP 131/87
[2021-07-11] MEDS: SPIRONOLACTONE 25MG TABLET PO SCH ×2 (08:11→17:35)
[2021-07-11] MEDS: AMLODIPINE 5MG TABLET PO SCH ×2 (08:12→20:45)
[2021-07-11] MEDS: LISINOPRIL 20MG TABLET PO SCH (08:12)
[2021-07-11] MEDS: MINOXIDIL 2.5MG TABLET PO SCH ×2 (08:13→20:45)
[2021-07-11] MEDS: SODIUM HYPOCHLORITE 0.125% 473ML SOLUTION TOP SCH (08:13)
[2021-07-11 12:00] VITALS: BP 139/60
[2021-07-11] MEDS ORDERED: ONDANSETRON HCL 4MG/2ML INJ IV PRN (14:30)
[2021-07-11 16:00] VITALS: BP 100/36
[2021-07-11] MEDS: AZTREONAM 1 G in DEXTROSE 5% WATER 50 ML IV SCH (16:30)
[2021-07-11 19:05] LABS: PLATELET ESTIMATE NORMAL
[2021-07-11 20:00] VITALS: BP 115/80
[2021-07-11] MEDS: CLONIDINE 0.1MG TABLET PO PRN (20:45)
[2021-07-11] MEDS: EPOETIN ALFA-EPBX 4,000 UNIT/ML VIAL SUBCUT SCH (21:11)
[2021-07-12] VITALS: BP 125/71
[2021-07-12] MEDS: MORPHINE SULFATE 2 MG/ML CPJ (NOT FOR IM USE) IV PRN ×4 (00:49→20:08)
[2021-07-12 04:00] VITALS: BP 162/63
[2021-07-12] MEDS: CLONIDINE 0.2MG TABLET PO SCH (04:48)
[2021-07-12] MEDS: METRONIDAZOLE 500 MG PREMIX 100 ML IV SCH ×3 (04:48→21:11)
[2021-07-12 06:20] LABS: PHOSPHORUS 3.6 mg/dL (2.5-4.9)
[2021-07-12] MEDS: BLOOD SUGAR DIAGNOSTIC STRIP TEST SCH ×4 (06:20→21:02)
[2021-07-12] MEDS: INSULIN LISPRO 100 UNITS/ML SUBCUT SCH ×4 (06:20→21:10)
[2021-07-12] MEDS: SPIRONOLACTONE 25MG TABLET PO SCH ×2 (06:21→16:31)
[2021-07-12 08:00] VITALS: BP 114/35
[2021-07-12 09:06] LABS: ANGIOTENSION CONVERTING ENZYME 7 U/L (14-82); VITAMIN D 1-25 DIHYDROXY 45.3 pg/mL (19.9-79.3)
[2021-07-12] MEDS: HYDROCODONE/ACETAMINOPHEN 10/325MG TABLET PO PRN ×2 (09:48→14:27)
[2021-07-12 10:24] LABS: HEMATOCRIT. 26.9 % (36.0-48.0); HEMOGLOBIN. 8.9 g/dL (12.0-16.0); MEAN CORPUSCULAR HEMOGLOBIN 29.8 pg (28.0-32.0); MEAN CORPUSCULAR VOLUME 89.8 fL (81.0-99.0); MEAN PLATELET VOLUME 8.3 fl (7.4-10.4); PLATELET 430 x1000/uL (130-400); RED CELL DISTRIBUTION WIDTH 17.8 % (11.6-14.6)
[2021-07-12] MEDS: AMLODIPINE 5MG TABLET PO SCH ×2 (11:19→20:38)
[2021-07-12] MEDS: SODIUM HYPOCHLORITE 0.125% 473ML SOLUTION TOP SCH (11:20)
[2021-07-12] MEDS: LISINOPRIL 20MG TABLET PO SCH (11:20)
[2021-07-12] MEDS: MINOXIDIL 2.5MG TABLET PO SCH ×2 (11:20→20:37)
[2021-07-12 12:00] VITALS: BP 107/35
[2021-07-12 16:00] VITALS: BP 107/42
[2021-07-12] MEDS: AZTREONAM 1 G in DEXTROSE 5% WATER 50 ML IV SCH (16:00)
[2021-07-12 17:14] LABS: PLATELET ESTIMATE INCREASED
[2021-07-12 20:00] VITALS: BP 136/42
[2021-07-13] VITALS: BP 124/40
[2021-07-13] MEDS: MORPHINE SULFATE 2 MG/ML CPJ (NOT FOR IM USE) IV PRN ×2 (02:24→08:53)
[2021-07-13 04:00] VITALS: BP 128/92
[2021-07-13] MEDS: METRONIDAZOLE 500 MG PREMIX 100 ML IV SCH ×3 (05:11→21:27)
[2021-07-13] MEDS: BLOOD SUGAR DIAGNOSTIC STRIP TEST SCH ×4 (05:54→21:39)
[2021-07-13] MEDS: INSULIN LISPRO 100 UNITS/ML SUBCUT SCH ×4 (06:17→21:00)
[2021-07-13] MEDS: SPIRONOLACTONE 25MG TABLET PO SCH ×2 (06:18→17:15)
[2021-07-13 08:00] VITALS: BP 138/65
[2021-07-13] MEDS: SODIUM HYPOCHLORITE 0.125% 473ML SOLUTION TOP SCH (08:56)
[2021-07-13] MEDS: AMLODIPINE 5MG TABLET PO SCH ×2 (08:57→22:17)
[2021-07-13] MEDS: LISINOPRIL 20MG TABLET PO SCH (08:57)
[2021-07-13] MEDS: MINOXIDIL 2.5MG TABLET PO SCH ×2 (08:57→22:17)
[2021-07-13] MEDS ORDERED: MORPHINE SULFATE 2 MG/ML CPJ (NOT FOR IM USE) IV NR (09:30)
[2021-07-13] MEDS: HYDROMORPHONE HCL/PF 2MG/ML CPJ IV PRN ×2 (09:40→18:04)
[2021-07-13 10:48] LABS: HEMATOCRIT. 26.8 % (36.0-48.0); HEMOGLOBIN. 8.7 g/dL (12.0-16.0); MEAN CORPUSCULAR HEMOGLOBIN 29.9 pg (28.0-32.0); MEAN CORPUSCULAR VOLUME 92.1 fL (81.0-99.0); MEAN PLATELET VOLUME 8.6 fl (7.4-10.4); PLATELET 379 x1000/uL (130-400); RED BLOOD CELL COUNT 2.91 mill/uL (4.2-5.4); RED CELL DISTRIBUTION WIDTH 17.6 % (11.6-14.6)
[2021-07-13] MEDS ORDERED: VANCOMYCIN HCL 1 GM/VIAL ONE (11:39)
[2021-07-13] MEDS ORDERED: POLYMYXIN B SULFATE 500000 UNITS/VIAL ONE (11:40)
[2021-07-13 12:00] VITALS: BP 156/54
[2021-07-13] MEDS ORDERED: LIDOCAINE HCL/EPINEPHRINE 1%-EPI 1:100,000 20 ML VIAL ONE (12:36)
[2021-07-13] MEDS ORDERED: CEFAZOLIN SODIUM 1000MG/VIAL ONE (13:53)
[2021-07-13] MEDS ORDERED: SUCCINYLCHOLINE CHLORIDE 200MG/10ML IV ONE (13:53)
[2021-07-13] MEDS ORDERED: FENTANYL CITRATE/PF 50MCG/ML 2ML VIAL ONE (13:53)
[2021-07-13] MEDS ORDERED: PROPOFOL 200MG/20ML VIAL IV ONE (13:53)
[2021-07-13] MEDS ORDERED: GLYCOPYRROLATE 0.2 MG/ML 2ML VIAL ONE (13:53)
[2021-07-13] MEDS ORDERED: ONDANSETRON HCL 4MG/2ML INJ ONE (13:53)
[2021-07-13] MEDS ORDERED: METOCLOPRAMIDE HCL 10MG/2ML VIAL ONE (13:53)
[2021-07-13] MEDS ORDERED: MIDAZOLAM HCL 2 MG/2 ML VIAL ONE (13:53)
[2021-07-13] MEDS ORDERED: FLUMAZENIL 0.1 MG/ML 5ML VIAL IV ONE (14:38)
[2021-07-13] MEDS ORDERED: FLUMAZENIL 0.1 MG/ML 5ML VIAL IV NR (14:45)
[2021-07-13 15:12] LABS: PLATELET ESTIMATE NORMAL
[2021-07-13] MEDS: AZTREONAM 1 G in DEXTROSE 5% WATER 50 ML IV SCH (16:00)
[2021-07-13 20:00] VITALS: BP 139/83
[2021-07-13 20:35] LABS: HEMATOCRIT 25.3 % (36.0-48.0); HEMOGLOBIN 7.8 g/dL (12.0-16.0)
[2021-07-13] MEDS: EPOETIN ALFA-EPBX 4,000 UNIT/ML VIAL SUBCUT SCH (21:27)
[2021-07-13] MEDS: HYDROCODONE/ACETAMINOPHEN 10/325MG TABLET PO PRN (22:16)
[2021-07-14] VITALS: BP 136/51
[2021-07-14] MEDS: HYDROMORPHONE HCL/PF 2MG/ML CPJ IV PRN ×4 (02:33→20:50)
[2021-07-14 04:00] VITALS: BP 139/50
[2021-07-14] MEDS: METRONIDAZOLE 500 MG PREMIX 100 ML IV SCH ×3 (05:09→20:50)
[2021-07-14] MEDS: INSULIN LISPRO 100 UNITS/ML SUBCUT SCH ×4 (06:12→21:00)
[2021-07-14] MEDS: BLOOD SUGAR DIAGNOSTIC STRIP TEST SCH ×4 (06:12→21:00)
[2021-07-14] MEDS: HYDROCODONE/ACETAMINOPHEN 10/325MG TABLET PO PRN ×3 (06:34→16:52)
[2021-07-14 07:17] LABS: HEMATOCRIT. 25.3 % (36.0-48.0); HEMOGLOBIN. 7.9 g/dL (12.0-16.0); MEAN CORPUSCULAR HEMOGLOBIN 29.1 pg (28.0-32.0); MEAN CORPUSCULAR VOLUME 93.3 fL (81.0-99.0); MEAN PLATELET VOLUME 8.8 fl (7.4-10.4); PLATELET 332 x1000/uL (130-400); RED BLOOD CELL COUNT 2.71 mill/uL (4.2-5.4); RED CELL DISTRIBUTION WIDTH 18.4 % (11.6-14.6)
[2021-07-14 07:41] LABS: PHOSPHORUS 4.1 mg/dL (2.5-4.9)
[2021-07-14 08:00] VITALS: BP 142/53
[2021-07-14] MEDS: SPIRONOLACTONE 25MG TABLET PO SCH ×2 (08:42→16:49)
[2021-07-14] MEDS: MINOXIDIL 2.5MG TABLET PO SCH ×2 (08:42→20:50)
[2021-07-14] MEDS: AMLODIPINE 5MG TABLET PO SCH ×2 (08:42→20:49)
[2021-07-14] MEDS: LISINOPRIL 20MG TABLET PO SCH (08:43)
[2021-07-14 11:45] VITALS: BP 142/45
[2021-07-14] MEDS: AZTREONAM 1 G in DEXTROSE 5% WATER 50 ML IV SCH (15:04)
[2021-07-14 16:00] VITALS: BP 141/97
[2021-07-14 16:44] LABS: PLATELET ESTIMATE NORMAL
[2021-07-14 20:00] VITALS: BP 147/48
[2021-07-15] VITALS: BP 146/53
[2021-07-15] MEDS: HYDROCODONE/ACETAMINOPHEN 10/325MG TABLET PO PRN ×2 (01:48→08:40)
[2021-07-15 04:00] VITALS: BP 142/48
[2021-07-15] MEDS: BLOOD SUGAR DIAGNOSTIC STRIP TEST SCH ×4 (05:53→21:00)
[2021-07-15] MEDS: HYDROMORPHONE HCL/PF 2MG/ML CPJ IV PRN ×4 (06:05→20:28)
[2021-07-15] MEDS: INSULIN LISPRO 100 UNITS/ML SUBCUT SCH ×4 (06:51→21:00)
[2021-07-15 08:00] VITALS: BP 151/50
[2021-07-15 08:34] LABS: HEMOGLOBIN. 7.6 g/dL (12.0-16.0); MEAN CORPUSCULAR HEMOGLOBIN 29.4 pg (28.0-32.0); MEAN CORPUSCULAR VOLUME 92.8 fL (81.0-99.0); MEAN PLATELET VOLUME 8.8 fl (7.4-10.4); PLATELET 351 x1000/uL (130-400); RED BLOOD CELL COUNT 2.59 mill/uL (4.2-5.4); RED CELL DISTRIBUTION WIDTH 18.2 % (11.6-14.6)
[2021-07-15] MEDS: LISINOPRIL 20MG TABLET PO SCH (08:39)
[2021-07-15] MEDS: SPIRONOLACTONE 25MG TABLET PO SCH ×2 (08:39→17:11)
[2021-07-15] MEDS: MINOXIDIL 2.5MG TABLET PO SCH ×2 (08:39→21:00)
[2021-07-15] MEDS: AMLODIPINE 5MG TABLET PO SCH ×2 (08:40→21:00)
[2021-07-15 10:10] LABS: PHOSPHORUS 4.1 mg/dL (2.5-4.9)
[2021-07-15 12:00] VITALS: BP 157/70
[2021-07-15] MEDS: AZTREONAM 1 G in DEXTROSE 5% WATER 50 ML IV SCH (15:32)
[2021-07-15 16:00] VITALS: BP 144/61
[2021-07-15] MEDS ORDERED: LORAZEPAM 2MG/ML CPJ IV PRN (22:00)
[2021-07-15 22:01] LABS: PLATELET ESTIMATE NORMAL
[2021-07-16] VITALS (7 sets, daily range): BP systolic 136–163; BP diastolic 50–70
[2021-07-16] MEDS: HYDROMORPHONE HCL/PF 2MG/ML CPJ IV PRN ×5 (01:08→22:49)
[2021-07-16 06:20] LABS: BASOPHILS % 0.8 % (0.0-2.0); EOSINOPHILS % 2.1 % (0.0-5.0); HEMATOCRIT. 27.5 % (36.0-48.0); HEMOGLOBIN. 8.7 g/dL (12.0-16.0); LYMPHOCYTES % 10.4 % (20.0-50.0); MEAN CORPUSCULAR HEMOGLOBIN 29.2 pg (28.0-32.0); MEAN CORPUSCULAR VOLUME 92.2 fL (81.0-99.0); MEAN PLATELET VOLUME 8.8 fl (7.4-10.4); MONOCYTES % 11.3 % (2.0-8.0); NEUTROPHILS % 75.4 % (40.0-76.0); PLATELET 360 x1000/uL (130-400); RED BLOOD CELL COUNT 2.99 mill/uL (4.2-5.4); RED CELL DISTRIBUTION WIDTH 18.3 % (11.6-14.6)
[2021-07-16] MEDS: SPIRONOLACTONE 25MG TABLET PO SCH ×2 (06:27→18:08)
[2021-07-16] MEDS: BLOOD SUGAR DIAGNOSTIC STRIP TEST SCH ×4 (06:58→21:46)
[2021-07-16] MEDS: INSULIN LISPRO 100 UNITS/ML SUBCUT SCH ×4 (07:50→21:00)
[2021-07-16] MEDS: LORAZEPAM 2MG/ML CPJ IV PRN ×2 (08:43→21:47)
[2021-07-16] MEDS: AMLODIPINE 5MG TABLET PO SCH ×2 (10:08→21:45)
[2021-07-16] MEDS: LISINOPRIL 20MG TABLET PO SCH (10:08)
[2021-07-16] MEDS: MINOXIDIL 2.5MG TABLET PO SCH ×2 (10:09→21:46)
[2021-07-16 12:26] LABS: PHOSPHORUS 3.1 mg/dL (2.5-4.9)
[2021-07-16] MEDS ORDERED: EPOETIN ALFA-EPBX 10,000 UNIT/ML VIAL SUBCUT SCH (21:00)
[2021-07-17 00:06] VITALS: BP 156/51
[2021-07-17] MEDS: HYDROCODONE/ACETAMINOPHEN 10/325MG TABLET PO PRN ×2 (02:43→23:39)
[2021-07-17 04:00] VITALS: BP 160/56
[2021-07-17] MEDS: HYDROMORPHONE HCL/PF 2MG/ML CPJ IV PRN ×2 (05:37→13:11)
[2021-07-17] MEDS: SPIRONOLACTONE 25MG TABLET PO SCH ×2 (06:48→17:15)
[2021-07-17] MEDS: BLOOD SUGAR DIAGNOSTIC STRIP TEST SCH ×4 (06:49→21:06)
[2021-07-17 06:55] LABS: BASOPHILS % 0.7 % (0.0-2.0); HEMATOCRIT. 28.3 % (36.0-48.0); HEMOGLOBIN. 8.8 g/dL (12.0-16.0); LYMPHOCYTES % 14.1 % (20.0-50.0); MEAN CORPUSCULAR HEMOGLOBIN 29.7 pg (28.0-32.0); MEAN CORPUSCULAR VOLUME 95.5 fL (81.0-99.0); MEAN PLATELET VOLUME 9.1 fl (7.4-10.4); MONOCYTES % 12.1 % (2.0-8.0); NEUTROPHILS % 70.1 % (40.0-76.0); PLATELET 395 x1000/uL (130-400); RED BLOOD CELL COUNT 2.96 mill/uL (4.2-5.4)
[2021-07-17] MEDS: INSULIN LISPRO 100 UNITS/ML SUBCUT SCH ×4 (07:21→21:00)
[2021-07-17 08:00] VITALS: BP 162/61
[2021-07-17] MEDS: POLYETHYLENE GLYCOL 3350 (17GM) 1 DOSE PACK PO SCH ×2 (09:00→10:23)
[2021-07-17] MEDS ORDERED: DULOXETINE HCL 20MG DR CAPSULE PO SCH (09:00)
[2021-07-17] MEDS: LISINOPRIL 20MG TABLET PO SCH (10:18)
[2021-07-17] MEDS: MINOXIDIL 2.5MG TABLET PO SCH ×2 (10:18→21:08)
[2021-07-17] MEDS: AMLODIPINE 5MG TABLET PO SCH ×2 (10:19→21:07)
[2021-07-17] MEDS: DULOXETINE HCL 30MG DR CAPSULE PO SCH (10:30)
[2021-07-17 12:00] VITALS: BP 165/69
[2021-07-17 16:00] VITALS: BP 165/59
[2021-07-17] MEDS ORDERED: HYDRALAZINE 10 MG in DEXTROSE 5% WATER 50 ML IV PRN (16:15)
[2021-07-17] MEDS ORDERED: NALOXONE HCL 0.4MG/ML VIAL IV PRN (16:15)
[2021-07-17 20:00] VITALS: BP 156/74
[2021-07-17] MEDS: EPOETIN ALFA-EPBX 4,000 UNIT/ML VIAL SUBCUT SCH (21:08)
[2021-07-17] MEDS: LORAZEPAM 2MG/ML CPJ IV PRN (21:09)
[2021-07-18] VITALS (7 sets, daily range): BP systolic 106–164; BP diastolic 40–106
[2021-07-18] MEDS: HYDROMORPHONE HCL/PF 2MG/ML CPJ IV PRN ×2 (02:00→09:22)
[2021-07-18] MEDS: LORAZEPAM 2MG/ML CPJ IV PRN ×2 (05:50→13:33)
[2021-07-18] MEDS: BLOOD SUGAR DIAGNOSTIC STRIP TEST SCH ×4 (06:33→21:00)
[2021-07-18] MEDS: INSULIN LISPRO 100 UNITS/ML SUBCUT SCH ×4 (06:33→21:00)
[2021-07-18] MEDS: HYDROCODONE/ACETAMINOPHEN 10/325MG TABLET PO PRN ×3 (06:57→22:11)
[2021-07-18] MEDS: SPIRONOLACTONE 25MG TABLET PO SCH ×2 (06:57→17:50)
[2021-07-18] MEDS ORDERED: BISACODYL 5MG TABLET PO SCH (08:45)
[2021-07-18] MEDS: DULOXETINE HCL 30MG DR CAPSULE PO SCH (09:20)
[2021-07-18] MEDS: LISINOPRIL 20MG TABLET PO SCH (09:20)
[2021-07-18] MEDS: AMLODIPINE 5MG TABLET PO SCH ×2 (09:21→21:00)
[2021-07-18] MEDS: POLYETHYLENE GLYCOL 3350 (17GM) 1 DOSE PACK PO SCH (09:21)
[2021-07-18] MEDS: MINOXIDIL 2.5MG TABLET PO SCH ×2 (09:30→21:00)
[2021-07-18] MEDS: CLONIDINE 0.1MG TABLET PO PRN (11:17)
[2021-07-19] VITALS: BP 109/52
[2021-07-19] MEDS: LORAZEPAM 2MG/ML CPJ IV PRN (00:09)
[2021-07-19 04:00] VITALS: BP 131/51
[2021-07-19 07:04] LABS: BASOPHILS % 0.6 % (0.0-2.0); EOSINOPHILS % 2.3 % (0.0-5.0); HEMATOCRIT. 24.3 % (36.0-48.0); HEMOGLOBIN. 8.1 g/dL (12.0-16.0); LYMPHOCYTES % 13.3 % (20.0-50.0); MEAN CORPUSCULAR VOLUME 90.2 fL (81.0-99.0); MONOCYTES % 12.1 % (2.0-8.0); NEUTROPHILS % 71.7 % (40.0-76.0); PLATELET 416 x1000/uL (130-400); RED BLOOD CELL COUNT 2.69 mill/uL (4.2-5.4); RED CELL DISTRIBUTION WIDTH 18.4 % (11.6-14.6)
[2021-07-19] MEDS: SPIRONOLACTONE 25MG TABLET PO SCH (07:15)
[2021-07-19] MEDS: BLOOD SUGAR DIAGNOSTIC STRIP TEST SCH ×4 (07:20→21:17)
[2021-07-19 08:00] VITALS: BP 141/46
[2021-07-19] MEDS: DULOXETINE HCL 30MG DR CAPSULE PO SCH (08:32)
[2021-07-19] MEDS: MINOXIDIL 2.5MG TABLET PO SCH ×2 (08:33→21:16)
[2021-07-19] MEDS: AMLODIPINE 5MG TABLET PO SCH ×3 (08:34→17:00)
[2021-07-19] MEDS: INSULIN LISPRO 100 UNITS/ML SUBCUT SCH ×4 (08:38→21:00)
[2021-07-19] MEDS: POLYETHYLENE GLYCOL 3350 (17GM) 1 DOSE PACK PO SCH (08:43)
[2021-07-19] MEDS: LISINOPRIL 20MG TABLET PO SCH (09:00)
[2021-07-19 12:00] VITALS: BP 147/54
[2021-07-19 16:00] VITALS: BP 146/53
[2021-07-19] MEDS: HYDROCODONE/ACETAMINOPHEN 10/325MG TABLET PO PRN ×2 (16:08→21:16)
[2021-07-19 20:00] VITALS: BP 140/55
[2021-07-19] MEDS: EPOETIN ALFA-EPBX 4,000 UNIT/ML VIAL SUBCUT SCH (21:17)
[2021-07-20] VITALS: BP 126/47
[2021-07-20] MEDS: LORAZEPAM 2MG/ML CPJ IV PRN (01:27)
[2021-07-20 04:00] VITALS: BP 131/55
[2021-07-20] MEDS: HYDROCODONE/ACETAMINOPHEN 10/325MG TABLET PO PRN ×3 (06:16→18:56)
[2021-07-20] MEDS: BLOOD SUGAR DIAGNOSTIC STRIP TEST SCH ×4 (06:46→20:46)
[2021-07-20 08:00] VITALS: BP 149/54
[2021-07-20] MEDS: DULOXETINE HCL 30MG DR CAPSULE PO SCH (08:33)
[2021-07-20] MEDS: MINOXIDIL 2.5MG TABLET PO SCH ×2 (08:34→20:58)
[2021-07-20] MEDS: POLYETHYLENE GLYCOL 3350 (17GM) 1 DOSE PACK PO SCH (08:34)
[2021-07-20] MEDS: AMLODIPINE 5MG TABLET PO SCH ×2 (08:35→18:12)
[2021-07-20] MEDS: LISINOPRIL 20MG TABLET PO SCH (08:35)
[2021-07-20] MEDS: INSULIN LISPRO 100 UNITS/ML SUBCUT SCH ×4 (08:38→20:46)
[2021-07-20 12:00] VITALS: BP 150/60
[2021-07-20 16:00] VITALS: BP 157/58
[2021-07-20 20:00] VITALS: BP 143/62
[2021-07-21] MEDS: BLOOD SUGAR DIAGNOSTIC STRIP TEST SCH ×4 (07:19→20:47)
[2021-07-21 07:26] LABS: BASOPHILS % 0.7 % (0.0-2.0); EOSINOPHILS % 2.5 % (0.0-5.0); HEMATOCRIT. 26.5 % (36.0-48.0); HEMOGLOBIN. 8.5 g/dL (12.0-16.0); LYMPHOCYTES % 18.1 % (20.0-50.0); MEAN CORPUSCULAR HEMOGLOBIN 29.2 pg (28.0-32.0); MEAN PLATELET VOLUME 9.3 fl (7.4-10.4); MONOCYTES % 11.8 % (2.0-8.0); NEUTROPHILS % 66.9 % (40.0-76.0); PLATELET 413 x1000/uL (130-400); RED BLOOD CELL COUNT 2.91 mill/uL (4.2-5.4); RED CELL DISTRIBUTION WIDTH 19.6 % (11.6-14.6)
[2021-07-21 07:39] LABS: PHOSPHORUS 3.1 mg/dL (2.5-4.9)
[2021-07-21] MEDS: INSULIN LISPRO 100 UNITS/ML SUBCUT SCH ×4 (07:50→20:47)
[2021-07-21 08:00] VITALS: BP 149/54
[2021-07-21] MEDS: POLYETHYLENE GLYCOL 3350 (17GM) 1 DOSE PACK PO SCH (09:19)
[2021-07-21] MEDS: AMLODIPINE 5MG TABLET PO SCH ×2 (09:19→17:09)
[2021-07-21] MEDS: LISINOPRIL 20MG TABLET PO SCH (09:20)
[2021-07-21] MEDS: MINOXIDIL 2.5MG TABLET PO SCH ×2 (09:21→21:00)
[2021-07-21] MEDS: DULOXETINE HCL 30MG DR CAPSULE PO SCH (09:21)
[2021-07-21 12:00] VITALS: BP 141/45
[2021-07-21 16:00] VITALS: BP 138/46
[2021-07-21] MEDS: HYDROCODONE/ACETAMINOPHEN 10/325MG TABLET PO PRN ×2 (16:57→21:56)
[2021-07-21] MEDS ORDERED: NALOXONE HCL 0.4MG/ML VIAL IV PRN (17:30)
[2021-07-21 20:00] VITALS: BP 119/46
[2021-07-21] MEDS: EPOETIN ALFA-EPBX 4,000 UNIT/ML VIAL SUBCUT SCH (21:23)
[2021-07-22] VITALS: BP 147/52
[2021-07-22 04:00] VITALS: BP 121/58
[2021-07-22] MEDS: HYDROCODONE/ACETAMINOPHEN 10/325MG TABLET PO PRN (07:03)
[2021-07-22] MEDS: BLOOD SUGAR DIAGNOSTIC STRIP TEST SCH ×4 (07:20→20:36)
[2021-07-22 08:00] VITALS: BP 135/55
[2021-07-22] MEDS: MINOXIDIL 2.5MG TABLET PO SCH ×2 (09:00→20:36)
[2021-07-22] MEDS: INSULIN LISPRO 100 UNITS/ML SUBCUT SCH ×4 (09:06→20:36)
[2021-07-22] MEDS: POLYETHYLENE GLYCOL 3350 (17GM) 1 DOSE PACK PO SCH (09:18)
[2021-07-22] MEDS: LISINOPRIL 20MG TABLET PO SCH (09:19)
[2021-07-22] MEDS: DULOXETINE HCL 30MG DR CAPSULE PO SCH (09:19)
[2021-07-22] MEDS: AMLODIPINE 5MG TABLET PO SCH ×2 (09:19→17:58)
[2021-07-22 12:00] VITALS: BP 128/40
[2021-07-22 16:00] VITALS: BP 135/45
[2021-07-22 20:00] VITALS: BP 127/76
[2021-07-22] MEDS: LORAZEPAM 1MG TABLET PO PRN (21:35)
[2021-07-23] VITALS: BP 134/71
[2021-07-23] MEDS: HYDROCODONE/ACETAMINOPHEN 10/325MG TABLET PO PRN ×3 (02:48→21:17)
[2021-07-23 04:00] VITALS: BP 120/76
[2021-07-23] MEDS: BLOOD SUGAR DIAGNOSTIC STRIP TEST SCH ×4 (06:56→21:26)
[2021-07-23 07:35] LABS: BASOPHILS % 0.8 % (0.0-2.0); EOSINOPHILS % 2.8 % (0.0-5.0); HEMATOCRIT. 24.4 % (36.0-48.0); HEMOGLOBIN. 7.6 g/dL (12.0-16.0); LYMPHOCYTES % 15.1 % (20.0-50.0); MEAN CORPUSCULAR HEMOGLOBIN 29.2 pg (28.0-32.0); MEAN CORPUSCULAR VOLUME 93.2 fL (81.0-99.0); MEAN PLATELET VOLUME 9.7 fl (7.4-10.4); MONOCYTES % 10.5 % (2.0-8.0); NEUTROPHILS % 70.8 % (40.0-76.0); PLATELET 454 x1000/uL (130-400); RED BLOOD CELL COUNT 2.62 mill/uL (4.2-5.4); RED CELL DISTRIBUTION WIDTH 19.6 % (11.6-14.6)
[2021-07-23] MEDS: INSULIN LISPRO 100 UNITS/ML SUBCUT SCH ×4 (07:50→21:30)
[2021-07-23 08:00] VITALS: BP 141/55
[2021-07-23] MEDS: POLYETHYLENE GLYCOL 3350 (17GM) 1 DOSE PACK PO SCH (09:02)
[2021-07-23] MEDS: DULOXETINE HCL 30MG DR CAPSULE PO SCH (09:02)
[2021-07-23] MEDS: LISINOPRIL 20MG TABLET PO SCH (09:02)
[2021-07-23] MEDS: AMLODIPINE 5MG TABLET PO SCH ×2 (09:02→17:56)
[2021-07-23 12:00] VITALS: BP 144/51
[2021-07-23 16:00] VITALS: BP 135/45
[2021-07-23 20:00] VITALS: BP 132/45
[2021-07-23] MEDS ORDERED: NALOXONE HCL 0.4MG/ML VIAL IV PRN (20:30)
[2021-07-23] MEDS: EPOETIN ALFA-EPBX 4,000 UNIT/ML VIAL SUBCUT SCH (21:00)
[2021-07-24] VITALS (7 sets, daily range): BP systolic 124–172; BP diastolic 48–63
[2021-07-24] MEDS: HYDROCODONE/ACETAMINOPHEN 10/325MG TABLET PO PRN ×4 (03:47→21:55)
[2021-07-24] MEDS: LORAZEPAM 1MG TABLET PO PRN ×2 (05:47→23:56)
[2021-07-24 06:35] LABS: BASOPHILS % 1.1 % (0.0-2.0); EOSINOPHILS % 2.7 % (0.0-5.0); HEMATOCRIT. 26.3 % (36.0-48.0); HEMOGLOBIN. 8.5 g/dL (12.0-16.0); LYMPHOCYTES % 16.1 % (20.0-50.0); MEAN CORPUSCULAR HEMOGLOBIN 29.9 pg (28.0-32.0); MEAN CORPUSCULAR VOLUME 92.1 fL (81.0-99.0); MEAN PLATELET VOLUME 9.7 fl (7.4-10.4); MONOCYTES % 12.2 % (2.0-8.0); NEUTROPHILS % 67.9 % (40.0-76.0); PLATELET 470 x1000/uL (130-400); RED BLOOD CELL COUNT 2.86 mill/uL (4.2-5.4); RED CELL DISTRIBUTION WIDTH 19.5 % (11.6-14.6)
[2021-07-24] MEDS: BLOOD SUGAR DIAGNOSTIC STRIP TEST SCH ×4 (06:39→20:45)
[2021-07-24] MEDS: INSULIN LISPRO 100 UNITS/ML SUBCUT SCH ×4 (07:38→21:16)
[2021-07-24] MEDS: LISINOPRIL 20MG TABLET PO SCH (08:50)
[2021-07-24] MEDS: DULOXETINE HCL 30MG DR CAPSULE PO SCH (09:01)
[2021-07-24] MEDS: AMLODIPINE 5MG TABLET PO SCH ×2 (09:06→17:00)
[2021-07-24] MEDS: POLYETHYLENE GLYCOL 3350 (17GM) 1 DOSE PACK PO SCH (09:07)
[2021-07-24] MEDS: CLONIDINE 0.1MG TABLET PO PRN (23:56)
[2021-07-25] VITALS: BP 194/69
[2021-07-25 04:00] VITALS: BP 154/57
[2021-07-25] MEDS: HYDROCODONE/ACETAMINOPHEN 10/325MG TABLET PO PRN ×3 (04:08→20:00)
[2021-07-25] MEDS: BLOOD SUGAR DIAGNOSTIC STRIP TEST SCH ×4 (07:20→21:00)
[2021-07-25] MEDS: INSULIN LISPRO 100 UNITS/ML SUBCUT SCH ×4 (07:50→21:00)
[2021-07-25 08:00] VITALS: BP 158/59
[2021-07-25] MEDS: AMLODIPINE 5MG TABLET PO SCH ×2 (09:33→16:59)
[2021-07-25] MEDS: LORAZEPAM 1MG TABLET PO PRN (09:33)
[2021-07-25] MEDS: LISINOPRIL 20MG TABLET PO SCH (09:33)
[2021-07-25] MEDS: DULOXETINE HCL 30MG DR CAPSULE PO SCH (09:34)
[2021-07-25] MEDS: POLYETHYLENE GLYCOL 3350 (17GM) 1 DOSE PACK PO SCH (09:38)
[2021-07-25 12:00] VITALS: BP 148/92
[2021-07-25 16:00] VITALS: BP 136/50
[2021-07-25 20:00] VITALS: BP 157/56
[2021-07-26] VITALS (8 sets, daily range): BP systolic 116–165; BP diastolic 50–71
[2021-07-26] MEDS: LORAZEPAM 1MG TABLET PO PRN ×2 (00:51→22:09)
[2021-07-26 06:54] LABS: BASOPHILS % 0.9 % (0.0-2.0); EOSINOPHILS % 3.5 % (0.0-5.0); HEMATOCRIT. 26.3 % (36.0-48.0); HEMOGLOBIN. 8.2 g/dL (12.0-16.0); LYMPHOCYTES % 17.7 % (20.0-50.0); MEAN CORPUSCULAR HEMOGLOBIN 29.6 pg (28.0-32.0); MEAN CORPUSCULAR VOLUME 95.1 fL (81.0-99.0); MEAN PLATELET VOLUME 9.9 fl (7.4-10.4); MONOCYTES % 14.7 % (2.0-8.0); NEUTROPHILS % 63.2 % (40.0-76.0); PLATELET 448 x1000/uL (130-400); RED BLOOD CELL COUNT 2.77 mill/uL (4.2-5.4); RED CELL DISTRIBUTION WIDTH 19.7 % (11.6-14.6)
[2021-07-26] MEDS: BLOOD SUGAR DIAGNOSTIC STRIP TEST SCH ×4 (07:15→21:00)
[2021-07-26] MEDS: INSULIN LISPRO 100 UNITS/ML SUBCUT SCH ×4 (07:38→21:00)
[2021-07-26] MEDS: POLYETHYLENE GLYCOL 3350 (17GM) 1 DOSE PACK PO SCH (08:27)
[2021-07-26] MEDS: DULOXETINE HCL 30MG DR CAPSULE PO SCH (08:27)
[2021-07-26] MEDS: AMLODIPINE 5MG TABLET PO SCH ×2 (08:28→17:26)
[2021-07-26] MEDS: LISINOPRIL 20MG TABLET PO SCH (08:28)
[2021-07-27] VITALS: BP 161/51
[2021-07-27 04:00] VITALS: BP 131/79
[2021-07-27] MEDS: BLOOD SUGAR DIAGNOSTIC STRIP TEST SCH ×4 (07:20→22:00)
[2021-07-27] MEDS: INSULIN LISPRO 100 UNITS/ML SUBCUT SCH ×4 (07:27→22:20)
[2021-07-27 08:00] VITALS: BP 161/56
[2021-07-27] MEDS: POLYETHYLENE GLYCOL 3350 (17GM) 1 DOSE PACK PO SCH (08:46)
[2021-07-27] MEDS: LISINOPRIL 40MG TABLET PO SCH (08:46)
[2021-07-27] MEDS: HYDROCODONE/ACETAMINOPHEN 10/325MG TABLET PO PRN ×2 (08:47→17:20)
[2021-07-27] MEDS: DULOXETINE HCL 30MG DR CAPSULE PO SCH (08:47)
[2021-07-27] MEDS: AMLODIPINE 5MG TABLET PO SCH ×2 (08:47→17:08)
[2021-07-27 12:00] VITALS: BP 150/51
[2021-07-27 16:00] VITALS: BP 141/51
[2021-07-27 16:56] LABS: HEPATITIS B SURFACE ANTIGEN NEGATIVE
[2021-07-27 20:00] VITALS: BP 146/50
[2021-07-27] MEDS: EPOETIN ALFA-EPBX 4,000 UNIT/ML VIAL SUBCUT SCH ×2 (21:00→23:46)
[2021-07-28] VITALS: BP 155/64
[2021-07-28 04:00] VITALS: BP 147/51
[2021-07-28 07:09] LABS: BASOPHILS % 1.4 % (0.0-2.0); EOSINOPHILS % 4.7 % (0.0-5.0); HEMATOCRIT. 23.6 % (36.0-48.0); HEMOGLOBIN. 7.7 g/dL (12.0-16.0); LYMPHOCYTES % 24.3 % (20.0-50.0); MEAN CORPUSCULAR HEMOGLOBIN 29.4 pg (28.0-32.0); MEAN CORPUSCULAR VOLUME 90.4 fL (81.0-99.0); MEAN PLATELET VOLUME 9.9 fl (7.4-10.4); MONOCYTES % 13.5 % (2.0-8.0); NEUTROPHILS % 56.1 % (40.0-76.0); PLATELET 410 x1000/uL (130-400); RED BLOOD CELL COUNT 2.61 mill/uL (4.2-5.4); RED CELL DISTRIBUTION WIDTH 19.1 % (11.6-14.6)
[2021-07-28] MEDS: BLOOD SUGAR DIAGNOSTIC STRIP TEST SCH ×4 (07:20→20:49)
[2021-07-28] MEDS: INSULIN LISPRO 100 UNITS/ML SUBCUT SCH ×4 (07:50→21:01)
[2021-07-28 08:00] VITALS: BP 145/55
[2021-07-28] MEDS: DULOXETINE HCL 30MG DR CAPSULE PO SCH (10:39)
[2021-07-28] MEDS: POLYETHYLENE GLYCOL 3350 (17GM) 1 DOSE PACK PO SCH (10:40)
[2021-07-28] MEDS: LISINOPRIL 40MG TABLET PO SCH (10:46)
[2021-07-28] MEDS: AMLODIPINE 5MG TABLET PO SCH ×2 (10:46→17:13)
[2021-07-28] MEDS: HYDROCODONE/ACETAMINOPHEN 10/325MG TABLET PO PRN ×3 (11:01→23:49)
[2021-07-28 12:00] VITALS: BP 153/53
[2021-07-28 16:00] VITALS: BP 137/48
[2021-07-28] MEDS ORDERED: DIPHENHYDRAMINE 25MG CAPSULE PO PRN (16:45)
[2021-07-28 20:00] VITALS: BP 137/47
[2021-07-29] VITALS: BP 128/57
[2021-07-29 04:00] VITALS: BP 147/50
[2021-07-29] MEDS: HYDROCODONE/ACETAMINOPHEN 10/325MG TABLET PO PRN ×4 (07:24→20:41)
[2021-07-29 07:28] LABS: BASOPHILS % 1.2 % (0.0-2.0); EOSINOPHILS % 5.6 % (0.0-5.0); HEMATOCRIT. 24.1 % (36.0-48.0); HEMOGLOBIN. 7.8 g/dL (12.0-16.0); MEAN CORPUSCULAR HEMOGLOBIN 29.5 pg (28.0-32.0); MEAN CORPUSCULAR VOLUME 90.6 fL (81.0-99.0); MEAN PLATELET VOLUME 9.9 fl (7.4-10.4); MONOCYTES % 12.3 % (2.0-8.0); NEUTROPHILS % 52.9 % (40.0-76.0); PLATELET 400 x1000/uL (130-400); RED BLOOD CELL COUNT 2.65 mill/uL (4.2-5.4); RED CELL DISTRIBUTION WIDTH 18.4 % (11.6-14.6)
[2021-07-29] MEDS: BLOOD SUGAR DIAGNOSTIC STRIP TEST SCH ×4 (07:35→20:36)
[2021-07-29] MEDS: INSULIN LISPRO 100 UNITS/ML SUBCUT SCH ×4 (07:50→20:39)
[2021-07-29 08:00] VITALS: BP 145/56
[2021-07-29] MEDS: DULOXETINE HCL 30MG DR CAPSULE PO SCH (09:20)
[2021-07-29] MEDS: POLYETHYLENE GLYCOL 3350 (17GM) 1 DOSE PACK PO SCH (09:20)
[2021-07-29] MEDS: LISINOPRIL 40MG TABLET PO SCH (09:21)
[2021-07-29] MEDS: AMLODIPINE 5MG TABLET PO SCH ×2 (09:21→17:41)
[2021-07-29] MEDS: LORAZEPAM 1MG TABLET PO PRN ×2 (09:22→17:38)
[2021-07-29 12:00] VITALS: BP 139/51
[2021-07-29 16:00] VITALS: BP 143/104
[2021-07-29 20:00] VITALS: BP 144/53
[2021-07-30] VITALS (7 sets, daily range): BP systolic 144–157; BP diastolic 50–54
[2021-07-30] MEDS: HYDROCODONE/ACETAMINOPHEN 10/325MG TABLET PO PRN ×3 (04:00→17:00)
[2021-07-30] MEDS: LORAZEPAM 1MG TABLET PO PRN (06:16)
[2021-07-30] MEDS: BLOOD SUGAR DIAGNOSTIC STRIP TEST SCH ×3 (06:32→20:49)
[2021-07-30] MEDS: INSULIN LISPRO 100 UNITS/ML SUBCUT SCH ×3 (07:50→20:48)
[2021-07-30] MEDS: DULOXETINE HCL 30MG DR CAPSULE PO SCH (11:28)
[2021-07-30] MEDS: AMLODIPINE 5MG TABLET PO SCH ×2 (11:30→17:04)
[2021-07-30] MEDS: LISINOPRIL 40MG TABLET PO SCH (11:30)
[2021-07-31] VITALS: BP 146/51
[2021-07-31] MEDS: HYDROCODONE/ACETAMINOPHEN 10/325MG TABLET PO PRN ×3 (00:45→20:07)
[2021-07-31] MEDS: BLOOD SUGAR DIAGNOSTIC STRIP TEST SCH ×4 (06:26→21:00)
[2021-07-31 07:31] LABS: BASOPHILS % 1.2 % (0.0-2.0); EOSINOPHILS % 6.3 % (0.0-5.0); HEMATOCRIT. 23.4 % (36.0-48.0); HEMOGLOBIN. 7.6 g/dL (12.0-16.0); LYMPHOCYTES % 22.3 % (20.0-50.0); MEAN CORPUSCULAR HEMOGLOBIN 29.3 pg (28.0-32.0); MEAN CORPUSCULAR VOLUME 90.6 fL (81.0-99.0); NEUTROPHILS % 59.2 % (40.0-76.0); PLATELET 399 x1000/uL (130-400); RED BLOOD CELL COUNT 2.59 mill/uL (4.2-5.4); RED CELL DISTRIBUTION WIDTH 18.8 % (11.6-14.6)
[2021-07-31] MEDS: INSULIN LISPRO 100 UNITS/ML SUBCUT SCH ×4 (07:50→21:00)
[2021-07-31 08:00] VITALS: BP 150/49
[2021-07-31] MEDS: AMLODIPINE 5MG TABLET PO SCH ×2 (09:02→17:00)
[2021-07-31] MEDS: DULOXETINE HCL 30MG DR CAPSULE PO SCH (09:02)
[2021-07-31] MEDS: POLYETHYLENE GLYCOL 3350 (17GM) 1 DOSE PACK PO SCH (09:02)
[2021-07-31] MEDS: LISINOPRIL 40MG TABLET PO SCH (09:03)
[2021-07-31 12:00] VITALS: BP 149/43
[2021-07-31 16:00] VITALS: BP 146/56
[2021-07-31] MEDS ORDERED: DEXTROSE 50% WATER 50ML SYRINGE IV PRN (16:30)
[2021-07-31] MEDS: SERTRALINE HCL 25MG TABLET PO SCH (19:00)
[2021-07-31 20:00] VITALS: BP 140/57
[2021-07-31] MEDS: LORAZEPAM 1MG TABLET PO PRN (22:34)
[2021-08-01] VITALS (10 sets, daily range): BP systolic 135–161; BP diastolic 40–60
[2021-08-01] MEDS: HYDROCODONE/ACETAMINOPHEN 10/325MG TABLET PO PRN ×2 (00:30→04:34)
[2021-08-01] MEDS: CLONIDINE 0.1MG TABLET PO PRN (01:56)
[2021-08-01 07:27] LABS: HEMOGLOBIN 8.2 g/dL (12.0-16.0); MEAN CORPUSCULAR HEMOGLOBIN 28.2 pg (28.0-32.0); MEAN CORPUSCULAR VOLUME 86.3 fL (81.0-99.0); PLATELET 345 x1000/uL (130-400); RED BLOOD CELL COUNT 2.89 mill/uL (4.2-5.4); RED CELL DISTRIBUTION WIDTH 19.9 % (11.6-14.6)
[2021-08-01 07:31] LABS: CHLORIDE 103 mEq/L (98-107)
[2021-08-01] MEDS: INSULIN LISPRO 100 UNITS/ML SUBCUT SCH (07:50)
[2021-08-01] MEDS: BLOOD SUGAR DIAGNOSTIC STRIP TEST SCH (08:07)
[2021-08-01] MEDS: AMLODIPINE 5MG TABLET PO SCH (10:10)
[2021-08-01] MEDS: DULOXETINE HCL 30MG DR CAPSULE PO SCH (10:10)
[2021-08-01] MEDS: SERTRALINE HCL 25MG TABLET PO SCH (10:11)
[2021-08-01] MEDS: LISINOPRIL 40MG TABLET PO SCH (10:11)
[2021-08-01] MEDS: POLYETHYLENE GLYCOL 3350 (17GM) 1 DOSE PACK PO SCH (10:11)
[2021-08-01] MEDS ORDERED: LACTULOSE 20G/30ML UDC PO SCH (12:00)
[2021-08-01] MEDS ORDERED: NA PHOS,M-B/NA PHOS,DI-BA ENEMA 118ML PR SCH (12:00)
== END 2021-08-01 13:22 | DRG 853 ==
LOC: ER 18:31 → 7WST 23:11 → EDBEDREQ 23:22 → EDBEDREQTM 23:22 → ENRESERV 23:44 → 7EST 07-03 14:30 → 6EST 07-15 18:18
PROVIDERS: ADMIT Internal Medicine; ATTEND Internal Medicine
PROC: 0HQ1XZZ Repair Face Skin, External Approach (ICD-10-PCS; 2021-07-02)
PROC: 5A1D70Z Performance of Urinary Filtration, Intermittent, Less than 6 Hours Per Day (ICD-10-PCS; 2021-07-04)
PROC: 30233N1 Transfusion of Nonautologous Red Blood Cells into Peripheral Vein, Percutaneous Approach (ICD-10-PCS; principal; 2021-07-05)
PROC: 5A1D70Z Performance of Urinary Filtration, Intermittent, Less than 6 Hours Per Day (ICD-10-PCS; 2021-07-06)
PROC: 5A1D70Z Performance of Urinary Filtration, Intermittent, Less than 6 Hours Per Day (ICD-10-PCS; 2021-07-08)
PROC: 047H3ZZ Dilation of Right External Iliac Artery, Percutaneous Approach (ICD-10-PCS; 2021-07-09)
PROC: 047C3ZZ Dilation of Right Common Iliac Artery, Percutaneous Approach (ICD-10-PCS; 2021-07-09)
PROC: B41D1ZZ Fluoroscopy of Aorta and Bilateral Lower Extremity Arteries using Low Osmolar Contrast (ICD-10-PCS; 2021-07-09)
PROC: B41C1ZZ Fluoroscopy of Pelvic Arteries using Low Osmolar Contrast (ICD-10-PCS; 2021-07-09)
PROC: 5A1D70Z Performance of Urinary Filtration, Intermittent, Less than 6 Hours Per Day (ICD-10-PCS; 2021-07-10)
PROC: 0KBV0ZZ Excision of Right Foot Muscle, Open Approach (ICD-10-PCS; 2021-07-10)
PROC: 5A1D70Z Performance of Urinary Filtration, Intermittent, Less than 6 Hours Per Day (ICD-10-PCS; 2021-07-12)
PROC: 0Y6H0Z1 Detachment at Right Lower Leg, High, Open Approach (ICD-10-PCS; 2021-07-13)
PROC: 5A1D70Z Performance of Urinary Filtration, Intermittent, Less than 6 Hours Per Day (ICD-10-PCS; 2021-07-15)
PROC: 5A1D70Z Performance of Urinary Filtration, Intermittent, Less than 6 Hours Per Day (ICD-10-PCS; 2021-07-17)
PROC: 5A1D70Z Performance of Urinary Filtration, Intermittent, Less than 6 Hours Per Day (ICD-10-PCS; 2021-07-19)
PROC: 5A1D70Z Performance of Urinary Filtration, Intermittent, Less than 6 Hours Per Day (ICD-10-PCS; 2021-07-21)
PROC: 5A1D70Z Performance of Urinary Filtration, Intermittent, Less than 6 Hours Per Day (ICD-10-PCS; 2021-07-24)
PROC: 5A1D70Z Performance of Urinary Filtration, Intermittent, Less than 6 Hours Per Day (ICD-10-PCS; 2021-07-26)
PROC: 5A1D70Z Performance of Urinary Filtration, Intermittent, Less than 6 Hours Per Day (ICD-10-PCS; 2021-07-28)
PROC: 5A1D70Z Performance of Urinary Filtration, Intermittent, Less than 6 Hours Per Day (ICD-10-PCS; 2021-07-31)
DX: A41.9 Sepsis, unspecified organism (principal); E43 Unspecified severe protein-calorie malnutrition; G93.41 Metabolic encephalopathy; N18.6 End stage renal disease; E87.1 Hypo-osmolality and hyponatremia; I13.2 Hypertensive heart and chronic kidney disease with heart failure and with stage 5 chronic kidney disease, or end stage renal disease; N25.81 Secondary hyperparathyroidism of renal origin; M86.8X7 Other osteomyelitis, ankle and foot; F33.0 Major depressive disorder, recurrent, mild; I70.261 Atherosclerosis of native arteries of extremities with gangrene, right leg; I70.92 Chronic total occlusion of artery of the extremities; L97.419 Non-pressure chronic ulcer of right heel and midfoot with unspecified severity; K57.32 Diverticulitis of large intestine without perforation or abscess without bleeding; S02.2XXA Fracture of nasal bones, initial encounter for closed fracture; S01.511A Laceration without foreign body of lip, initial encounter; D64.9 Anemia, unspecified; I70.202 Unspecified atherosclerosis of native arteries of extremities, left leg; E11.22 Type 2 diabetes mellitus with diabetic chronic kidney disease; E11.319 Type 2 diabetes mellitus with unspecified diabetic retinopathy without macular edema; E11.621 Type 2 diabetes mellitus with foot ulcer; K52.9 Noninfective gastroenteritis and colitis, unspecified; B96.4 Proteus (mirabilis) (morganii) as the cause of diseases classified elsewhere; E11.69 Type 2 diabetes mellitus with other specified complication; I70.8 Atherosclerosis of other arteries; Z20.822 Contact with and (suspected) exposure to COVID-19; S91.302A Unspecified open wound, left foot, initial encounter; X58.XXXA Exposure to other specified factors, initial encounter; K81.9 Cholecystitis, unspecified; I50.9 Heart failure, unspecified; E83.39 Other disorders of phosphorus metabolism; E87.8 Other disorders of electrolyte and fluid balance, not elsewhere classified; W18.39XA Other fall on same level, initial encounter; Z86.73 Personal history of transient ischemic attack (TIA), and cerebral infarction without residual deficits; Z88.0 Allergy status to penicillin; Z99.2 Dependence on renal dialysis; Z68.22 Body mass index [BMI] 22.0-22.9, adult; Z79.899 Other long term (current) drug therapy; Y93.89 Activity, other specified; Y92.89 Other specified places as the place of occurrence of the external cause; Y99.8 Other external cause status
CPT/HCPCS: 36415; 37220; 70486; 70551; 71045; 71260; 73630; 74177; 75635; 75710; 76700; 80048; 80053; 80061; 80076; 80202; 82140; 82164; 82306; 82330; 82652; 82784; 82962; 83605; 83735; 83880; 83970; 84100; 84145; 84155; 84165; 84443; 84484; 85014; 85018; 85025; 85027; 85049; 85384; 85651; 86140; 86334; 86705; 86706; 86709; 86803; 86850; 86900; 86920; 87015; 87045; 87070; 87075; 87077; 87186; 87340; 87426; 87427; 87449; 88307; 88311; 89055; 90715; 92610; 93005; 93306; 93923; 93970; 93971; 99285; C1725; C1760; C1769; C1893; C1894; J0330; J0360; J0690; J0885; J1170; J1644; J1815; J1956; J2060; J2250; J2270; J2405; J2704; J2765; J3010; J3370; J3490; J7040; J7060; P9016; Q0163; Q9967; U0003; U0005

== ENCOUNTER 2021-08-02 17:10 | Inpatient (IN) | payer MEDICARE, MEDICAID ==
[~2021-08-02] VITALS: Ht 152.4 cm; Wt 52.2 kg
[2021-08-02 20:52] LABS: BASOPHILS % 1.2 % (0.0-2.0); EOSINOPHILS % 4.1 % (0.0-5.0); HEMATOCRIT. 30.9 % (36.0-48.0); HEMOGLOBIN. 9.9 g/dL (12.0-16.0); LYMPHOCYTES % 21.3 % (20.0-50.0); MEAN CORPUSCULAR HEMOGLOBIN 27.9 pg (28.0-32.0); MEAN CORPUSCULAR VOLUME 86.8 fL (81.0-99.0); MEAN PLATELET VOLUME 9.5 fl (7.4-10.4); MONOCYTES % 12.2 % (2.0-8.0); NEUTROPHILS % 61.2 % (40.0-76.0); PLATELET 384 x1000/uL (130-400); RED BLOOD CELL COUNT 3.55 mill/uL (4.2-5.4); RED CELL DISTRIBUTION WIDTH 19.7 % (11.6-14.6)
[2021-08-02 20:56] LABS: CHLORIDE 99 mEq/L (98-107)
[2021-08-02 21:00] LABS: ETHANOL BLOOD < 10 mg/dL
[2021-08-02] MEDS ORDERED: MORPHINE SULFATE 4 MG/ML CPJ (NOT FOR IM USE) IV ONE (21:00)
[2021-08-02] MEDS ORDERED: MORPHINE SULFATE 2 MG/ML CPJ (NOT FOR IM USE) IV NR (21:47)
[2021-08-03] VITALS (9 sets, daily range): BP systolic 92–160; BP diastolic 24–70
[2021-08-03] MEDS ORDERED: NITROGLYCERIN 0.4MG TABLET SL SL PRN (07:15)
[2021-08-03] MEDS ORDERED: GUAIFENESIN 200MG/10ML SUGAR FREE UDC PO PRN (07:15)
[2021-08-03] MEDS ORDERED: ACETAMINOPHEN 325MG TABLET PO PRN (07:15)
[2021-08-03] MEDS ORDERED: IPRATROPIUM/ALBUTEROL 0.5-3(2.5)MG/3ML NEB NEB PRN (07:15)
[2021-08-03] MEDS ORDERED: MAGNESIUM/ALUMINUM HYDROXIDE/SIMETHICONE 30ML UDC PO PRN (07:15)
[2021-08-03] MEDS: BLOOD SUGAR DIAGNOSTIC STRIP TEST SCH ×4 (07:30→21:04)
[2021-08-03] MEDS: INSULIN LISPRO 100 UNITS/ML SUBCUT SCH ×4 (08:00→21:03)
[2021-08-03] MEDS: TRAMADOL 50MG TABLET PO PRN ×3 (08:28→23:48)
[2021-08-03] MEDS ORDERED: ENOXAPARIN 30MG/0.3ML SYR SUBCUT SCH (09:00)
[2021-08-03] MEDS ORDERED: DOCUSATE SODIUM 100MG CAPSULE PO PRN (09:00)
[2021-08-03] MEDS: SEVELAMER CARBONATE 800 MG TABLET PO SCH ×3 (09:31→17:29)
[2021-08-03] MEDS: AMLODIPINE 10MG TABLET PO SCH (09:33)
[2021-08-03] MEDS: ENOXAPARIN 30MG/0.3ML SYR SUBCUT SCH (09:34)
[2021-08-03] MEDS: FAMOTIDINE 20MG TABLET PO SCH (09:34)
[2021-08-03] MEDS: ASPIRIN 325MG EC TABLET PO SCH (09:36)
[2021-08-03 11:22] LABS: FOLIC ACID (FOLATE) SERUM >20 ng/mL ng/mL (>5.38)
[2021-08-03 11:34] LABS: VITAMIN B12 SERUM 991 pg/mL (211-911)
[2021-08-03] MEDS: ACETAMINOPHEN 325MG TABLET PO PRN (11:57)
[2021-08-03 13:46] LABS: HEPATITIS B SURFACE ANTIGEN NEGATIVE
[2021-08-03 17:03] LABS: CREATINE KINASE 34 IU/L (26-192)
[2021-08-03 17:04] LABS: CREATINE KINASE MB FRACTION 1.7 ng/mL (0.5-3.6)
[2021-08-03] MEDS: CLONIDINE 0.1MG TABLET PO PRN (17:29)
[2021-08-03] MEDS: ZOLPIDEM TARTRATE 5MG TABLET PO PRN (20:54)
[2021-08-03] MEDS ORDERED: INSULIN GLARGINE UD 100 UNITS/ML SYR SUBCUT SCH (22:00)
[2021-08-03] MEDS: ONDANSETRON HCL 4MG/2ML INJ IV PRN (23:48)
[2021-08-04] VITALS (11 sets, daily range): BP systolic 107–166; BP diastolic 33–111
[2021-08-04 00:49] LABS: CREATINE KINASE 32 IU/L (26-192)
[2021-08-04 00:50] LABS: CREATINE KINASE MB FRACTION 1.7 ng/mL (0.5-3.6)
[2021-08-04 06:57] LABS: CHLORIDE 101 mEq/L (98-107)
[2021-08-04 07:05] LABS: PHOSPHORUS 4.2 mg/dL (2.5-4.9)
[2021-08-04 07:09] LABS: BASOPHILS % 0.8 % (0.0-2.0); EOSINOPHILS % 0.4 % (0.0-5.0); HEMATOCRIT. 29.9 % (36.0-48.0); HEMOGLOBIN. 9.7 g/dL (12.0-16.0); LYMPHOCYTES % 7.6 % (20.0-50.0); MEAN CORPUSCULAR HEMOGLOBIN 28.2 pg (28.0-32.0); MEAN CORPUSCULAR VOLUME 86.3 fL (81.0-99.0); MEAN PLATELET VOLUME 9.5 fl (7.4-10.4); MONOCYTES % 6.2 % (2.0-8.0); PLATELET 376 x1000/uL (130-400); RED BLOOD CELL COUNT 3.46 mill/uL (4.2-5.4); RED CELL DISTRIBUTION WIDTH 19.1 % (11.6-14.6)
[2021-08-04] MEDS: INSULIN LISPRO 100 UNITS/ML SUBCUT SCH ×4 (08:00→21:00)
[2021-08-04] MEDS: BLOOD SUGAR DIAGNOSTIC STRIP TEST SCH ×4 (08:19→21:11)
[2021-08-04] MEDS: DEXTROSE 50% WATER 50ML SYRINGE IV PRN (08:19)
[2021-08-04] MEDS: SEVELAMER CARBONATE 800 MG TABLET PO SCH ×3 (08:56→17:20)
[2021-08-04] MEDS: FAMOTIDINE 20MG TABLET PO SCH (09:14)
[2021-08-04] MEDS: ASPIRIN 325MG EC TABLET PO SCH (09:14)
[2021-08-04] MEDS: TRAMADOL 50MG TABLET PO PRN ×3 (09:15→21:11)
[2021-08-04] MEDS: AMLODIPINE 10MG TABLET PO SCH (09:16)
[2021-08-04] MEDS: ENOXAPARIN 30MG/0.3ML SYR SUBCUT SCH (09:17)
[2021-08-04] MEDS: ONDANSETRON HCL 4MG/2ML INJ IV PRN (21:24)
[2021-08-04] MEDS: ZOLPIDEM TARTRATE 5MG TABLET PO PRN (21:43)
[2021-08-04] MEDS: INSULIN GLARGINE UD 100 UNITS/ML SYR SUBCUT SCH (22:00)
[2021-08-05] VITALS (8 sets, daily range): BP systolic 102–164; BP diastolic 53–76
[2021-08-05] MEDS: ACETAMINOPHEN 325MG TABLET PO PRN ×3 (03:20→23:30)
[2021-08-05] MEDS: CLONIDINE 0.1MG TABLET PO PRN (04:00)
[2021-08-05] MEDS: TRAMADOL 50MG TABLET PO PRN ×3 (04:34→18:47)
[2021-08-05 07:05] LABS: EOSINOPHILS % 5.7 % (0.0-5.0); HEMATOCRIT. 29.2 % (36.0-48.0); HEMOGLOBIN. 9.5 g/dL (12.0-16.0); LYMPHOCYTES % 29.1 % (20.0-50.0); MEAN CORPUSCULAR HEMOGLOBIN 28.4 pg (28.0-32.0); MEAN CORPUSCULAR VOLUME 87.1 fL (81.0-99.0); MEAN PLATELET VOLUME 9.9 fl (7.4-10.4); MONOCYTES % 10.5 % (2.0-8.0); NEUTROPHILS % 53.7 % (40.0-76.0); PLATELET 376 x1000/uL (130-400); RED BLOOD CELL COUNT 3.36 mill/uL (4.2-5.4); RED CELL DISTRIBUTION WIDTH 19.1 % (11.6-14.6)
[2021-08-05] MEDS: INSULIN LISPRO 100 UNITS/ML SUBCUT SCH ×4 (07:39→21:39)
[2021-08-05] MEDS: BLOOD SUGAR DIAGNOSTIC STRIP TEST SCH ×4 (07:39→21:00)
[2021-08-05] MEDS: AMLODIPINE 10MG TABLET PO SCH (08:16)
[2021-08-05] MEDS: FAMOTIDINE 20MG TABLET PO SCH (08:16)
[2021-08-05] MEDS: ENOXAPARIN 30MG/0.3ML SYR SUBCUT SCH (08:17)
[2021-08-05] MEDS: ASPIRIN 325MG EC TABLET PO SCH (08:19)
[2021-08-05] MEDS: SEVELAMER CARBONATE 800 MG TABLET PO SCH ×3 (08:19→17:41)
[2021-08-05] MEDS: EPOETIN ALFA-EPBX 4,000 UNIT/ML VIAL SUBCUT SCH (21:35)
[2021-08-05] MEDS: INSULIN GLARGINE UD 100 UNITS/ML SYR SUBCUT SCH (21:39)
[2021-08-05] MEDS: ZOLPIDEM TARTRATE 5MG TABLET PO PRN (23:30)
[2021-08-06] VITALS (8 sets, daily range): BP systolic 136–175; BP diastolic 53–76
[2021-08-06] MEDS: BLOOD SUGAR DIAGNOSTIC STRIP TEST SCH ×4 (07:46→21:00)
[2021-08-06] MEDS: INSULIN LISPRO 100 UNITS/ML SUBCUT SCH ×4 (08:00→22:36)
[2021-08-06] MEDS: ASPIRIN 325MG EC TABLET PO SCH (08:24)
[2021-08-06] MEDS: SEVELAMER CARBONATE 800 MG TABLET PO SCH ×3 (08:24→17:03)
[2021-08-06] MEDS: FAMOTIDINE 20MG TABLET PO SCH (08:24)
[2021-08-06] MEDS: AMLODIPINE 10MG TABLET PO SCH (08:25)
[2021-08-06] MEDS: TRAMADOL 50MG TABLET PO PRN ×2 (08:26→17:04)
[2021-08-06] MEDS: ENOXAPARIN 30MG/0.3ML SYR SUBCUT SCH (08:27)
[2021-08-06] MEDS: GABAPENTIN 100MG CAPSULE PO SCH ×3 (10:06→22:33)
[2021-08-06] MEDS: CLONIDINE 0.1MG TABLET PO PRN (12:58)
[2021-08-06] MEDS: ACETAMINOPHEN 325MG TABLET PO PRN ×2 (12:59→20:20)
[2021-08-06] MEDS: DEXTROSE 50% WATER 50ML SYRINGE IV PRN (17:05)
[2021-08-06] MEDS: EPOETIN ALFA-EPBX 4,000 UNIT/ML VIAL SUBCUT SCH (21:00)
[2021-08-07] VITALS: BP 143/56
[2021-08-07] MEDS: ZOLPIDEM TARTRATE 5MG TABLET PO PRN ×2 (00:31→18:46)
[2021-08-07] MEDS: TRAMADOL 50MG TABLET PO PRN ×3 (00:33→16:10)
[2021-08-07] MEDS: INSULIN GLARGINE UD 100 UNITS/ML SYR SUBCUT SCH (00:44)
[2021-08-07 04:00] VITALS: BP 140/56
[2021-08-07] MEDS: GABAPENTIN 100MG CAPSULE PO SCH ×3 (06:16→22:03)
[2021-08-07] MEDS: DEXTROSE 50% WATER 50ML SYRINGE IV PRN ×2 (06:41→13:28)
[2021-08-07 06:42] LABS: EOSINOPHILS % 8.7 % (0.0-5.0); HEMATOCRIT. 27.6 % (36.0-48.0); HEMOGLOBIN. 8.9 g/dL (12.0-16.0); MEAN CORPUSCULAR HEMOGLOBIN 28.1 pg (28.0-32.0); MEAN CORPUSCULAR VOLUME 87.3 fL (81.0-99.0); MEAN PLATELET VOLUME 9.9 fl (7.4-10.4); MONOCYTES % 12.1 % (2.0-8.0); NEUTROPHILS % 46.2 % (40.0-76.0); PLATELET 324 x1000/uL (130-400); RED BLOOD CELL COUNT 3.16 mill/uL (4.2-5.4); RED CELL DISTRIBUTION WIDTH 18.5 % (11.6-14.6)
[2021-08-07] MEDS: BLOOD SUGAR DIAGNOSTIC STRIP TEST SCH ×4 (07:30→21:00)
[2021-08-07 08:00] VITALS: BP 137/66
[2021-08-07] MEDS: INSULIN LISPRO 100 UNITS/ML SUBCUT SCH ×4 (08:00→21:00)
[2021-08-07] MEDS: SEVELAMER CARBONATE 800 MG TABLET PO SCH ×4 (08:38→17:58)
[2021-08-07] MEDS: FOLIC ACID/VITAMIN B COMP W-C TABLET PO SCH (09:11)
[2021-08-07] MEDS: ASPIRIN 325MG EC TABLET PO SCH (09:11)
[2021-08-07] MEDS: ENOXAPARIN 30MG/0.3ML SYR SUBCUT SCH (09:11)
[2021-08-07] MEDS: FAMOTIDINE 20MG TABLET PO SCH (09:11)
[2021-08-07] MEDS: AMLODIPINE 10MG TABLET PO SCH (09:19)
[2021-08-07 12:00] VITALS: BP 145/58
[2021-08-07 16:00] VITALS: BP 152/54
[2021-08-07] MEDS: ONDANSETRON HCL 4MG/2ML INJ IV PRN (16:10)
[2021-08-07 20:00] VITALS: BP 150/64
[2021-08-08] VITALS: BP 141/70
[2021-08-08] MEDS: EPOETIN ALFA-EPBX 4,000 UNIT/ML VIAL SUBCUT SCH (00:14)
[2021-08-08] MEDS: ACETAMINOPHEN 325MG TABLET PO PRN (01:53)
[2021-08-08 04:00] VITALS: BP 154/72
[2021-08-08] MEDS: GABAPENTIN 100MG CAPSULE PO SCH ×2 (05:33→14:00)
[2021-08-08] MEDS: TRAMADOL 50MG TABLET PO PRN (06:35)
[2021-08-08] MEDS: BLOOD SUGAR DIAGNOSTIC STRIP TEST SCH ×2 (07:30→13:15)
[2021-08-08 08:00] VITALS: BP 137/68
[2021-08-08] MEDS: INSULIN LISPRO 100 UNITS/ML SUBCUT SCH ×2 (08:00→13:00)
[2021-08-08] MEDS: FAMOTIDINE 20MG TABLET PO SCH (09:42)
[2021-08-08] MEDS: AMLODIPINE 10MG TABLET PO SCH (09:42)
[2021-08-08] MEDS: SEVELAMER CARBONATE 800 MG TABLET PO SCH ×2 (09:42→13:00)
[2021-08-08] MEDS: ASPIRIN 325MG EC TABLET PO SCH (09:42)
[2021-08-08] MEDS: FOLIC ACID/VITAMIN B COMP W-C TABLET PO SCH (09:42)
[2021-08-08] MEDS: ENOXAPARIN 30MG/0.3ML SYR SUBCUT SCH (09:43)
[2021-08-08 11:53] VITALS: BP 165/85
[2021-08-08] MEDS: ONDANSETRON HCL 4MG/2ML INJ IV PRN (13:15)
[2021-08-08 13:45] VITALS: BP 118/68
== END 2021-08-08 17:41 | DRG 291 ==
LOC: ER 17:10 → ENRESERV 08-03 01:59 → 5EST 08-03 04:43
PROVIDERS: ADMIT Internal Medicine; ATTEND Internal Medicine
PROC: 5A1D70Z Performance of Urinary Filtration, Intermittent, Less than 6 Hours Per Day (ICD-10-PCS; 2021-08-03)
PROC: 5A1D70Z Performance of Urinary Filtration, Intermittent, Less than 6 Hours Per Day (ICD-10-PCS; principal; 2021-08-07)
DX: I13.2 Hypertensive heart and chronic kidney disease with heart failure and with stage 5 chronic kidney disease, or end stage renal disease (principal); E43 Unspecified severe protein-calorie malnutrition; G93.41 Metabolic encephalopathy; J96.00 Acute respiratory failure, unspecified whether with hypoxia or hypercapnia; N18.6 End stage renal disease; I50.33 Acute on chronic diastolic (congestive) heart failure; E87.1 Hypo-osmolality and hyponatremia; D63.8 Anemia in other chronic diseases classified elsewhere; E11.22 Type 2 diabetes mellitus with diabetic chronic kidney disease; E11.51 Type 2 diabetes mellitus with diabetic peripheral angiopathy without gangrene; F32.A Depression, unspecified; L89.622 Pressure ulcer of left heel, stage 2; Z20.822 Contact with and (suspected) exposure to COVID-19; E78.5 Hyperlipidemia, unspecified; E87.5 Hyperkalemia; F03.90 Unspecified dementia, unspecified severity, without behavioral disturbance, psychotic disturbance, mood disturbance, and anxiety; Z82.49 Family history of ischemic heart disease and other diseases of the circulatory system; Z83.3 Family history of diabetes mellitus; Z86.73 Personal history of transient ischemic attack (TIA), and cerebral infarction without residual deficits; Z89.511 Acquired absence of right leg below knee; Z99.2 Dependence on renal dialysis; Z88.0 Allergy status to penicillin; Z79.4 Long term (current) use of insulin; Z79.899 Other long term (current) drug therapy; Z68.22 Body mass index [BMI] 22.0-22.9, adult
CPT/HCPCS: 36415; 71045; 73630; 80048; 80053; 80061; 80320; 82550; 82553; 82607; 82746; 82962; 83036; 83540; 83550; 83735; 83880; 84100; 84484; 85025; 86705; 86709; 86803; 87340; 87426; 93005; 93970; 99285; J0885; J1650; J1815; J2270; J2405; G0480

== ENCOUNTER 2021-08-20 19:36 | Inpatient (IN) | payer MEDICARE, MEDICAID ==
[~2021-08-20] VITALS: Ht 160 cm; Wt 61.7 kg
[~2021-08-20 19:36] MED LIST changes: -INSU100I28 SQ
[2021-08-20] MEDS ORDERED: FUROSEMIDE 40MG/4ML VIAL IV ONE (20:00)
[2021-08-20] MEDS ORDERED: NITROGLYCERIN 0.4MG TABLET SL SL PRN (20:00)
[2021-08-20 20:55] LABS: HEMATOCRIT. 22.2 % (36.0-48.0); MEAN CORPUSCULAR HEMOGLOBIN 27.4 pg (28.0-32.0); MEAN CORPUSCULAR VOLUME 86.6 fL (81.0-99.0); MEAN PLATELET VOLUME 9.2 fl (7.4-10.4); PLATELET 217 x1000/uL (130-400); RED BLOOD CELL COUNT 2.56 mill/uL (4.2-5.4); RED CELL DISTRIBUTION WIDTH 18.6 % (11.6-14.6)
[2021-08-20 21:01] LABS: CHLORIDE 100 mEq/L (98-107)
[2021-08-20 21:21] LABS: PLATELET ESTIMATE NORMAL
[2021-08-20] MEDS ORDERED: ASPIRIN 325MG TABLET PO ONE (22:00)
[2021-08-20] MEDS ORDERED: ENOXAPARIN 80MG/0.8ML SYR SUBCUT SCH (23:00)
[2021-08-21] VITALS (13 sets, daily range): BP systolic 94–190; BP diastolic 40–84
[2021-08-21] MEDS ORDERED: DEXTROSE 50% WATER 50ML SYRINGE IV PRN (03:45)
[2021-08-21 06:13] LABS: INR 1.3; PROTHROMBIN TIME 13.6 sec (9.6-11.0)
[2021-08-21 06:48] LABS: BASOPHILS % 0.6 % (0.0-2.0); EOSINOPHILS % 0.6 % (0.0-5.0); MEAN CORPUSCULAR HEMOGLOBIN 28.6 pg (28.0-32.0); MEAN CORPUSCULAR VOLUME 85.6 fL (81.0-99.0); MEAN PLATELET VOLUME 9.8 fl (7.4-10.4); MONOCYTES % 4.4 % (2.0-8.0); NEUTROPHILS % 80.4 % (40.0-76.0); PLATELET 197 x1000/uL (130-400); RED BLOOD CELL COUNT 2.28 mill/uL (4.2-5.4)
[2021-08-21] MEDS ORDERED: BLOOD SUGAR DIAGNOSTIC STRIP TEST SCH (06:50)
[2021-08-21 07:09] LABS: HEMATOCRIT. 19.6 % (36.0-48.0); HEMOGLOBIN. 6.5 g/dL (12.0-16.0)
[2021-08-21] MEDS ORDERED: INSULIN LISPRO 100 UNITS/ML SUBCUT SCH (07:20)
[2021-08-21] MEDS ORDERED: NALOXONE HCL 0.4MG/ML VIAL IV PRN (08:15)
[2021-08-21] MEDS: METOPROLOL TARTRATE 50MG TABLET PO SCH ×2 (08:29→21:00)
[2021-08-21] MEDS: ISOSORBIDE MONONITRATE 30MG TABLET SR 24HR PO SCH (08:29)
[2021-08-21] MEDS: HYDROCODONE/ACETAMINOPHEN 10/325MG TABLET PO PRN ×2 (08:30→16:17)
[2021-08-21] MEDS: NIFEDIPINE XL 60MG TAB PO SCH ×2 (08:31→21:00)
[2021-08-21] MEDS: SEVELAMER CARBONATE 800 MG TABLET PO SCH ×3 (08:36→18:11)
[2021-08-21] MEDS ORDERED: ONDANSETRON HCL 4MG/2ML INJ IV PRN (09:00)
[2021-08-21] MEDS ORDERED: ASPIRIN 81MG TABLET PO SCH (09:00)
[2021-08-21] MEDS ORDERED: MORPHINE SULFATE 2 MG/ML CPJ (NOT FOR IM USE) IV NR (09:45)
[2021-08-21] MEDS: GABAPENTIN 300MG CAPSULE PO SCH ×2 (12:01→18:11)
[2021-08-21] MEDS ORDERED: DIATR MEGLU/DIATRIZOATE SOLN 30ML PO SCH (14:45)
[2021-08-21 14:51] LABS: HEPATITIS B SURFACE ANTIGEN NEGATIVE
[2021-08-21] MEDS ORDERED: LEVOFLOXACIN 500MG PREMIX 100 ML IV NR (15:30)
[2021-08-21] MEDS ORDERED: LEVOFLOXACIN 750MG PREMIX 150 ML IV NR (17:30)
[2021-08-21] MEDS: HYDROMORPHONE HCL/PF 2MG/ML CPJ IV PRN (18:12)
[2021-08-21 20:22] LABS: HEMATOCRIT. 28.7 % (36.0-48.0); HEMOGLOBIN. 9.3 g/dL (12.0-16.0); MEAN CORPUSCULAR HEMOGLOBIN 27.7 pg (28.0-32.0); MEAN PLATELET VOLUME 10.5 fl (7.4-10.4); PLATELET 199 x1000/uL (130-400); RED BLOOD CELL COUNT 3.37 mill/uL (4.2-5.4)
[2021-08-21 20:29] LABS: INR 1.3
[2021-08-21 21:04] LABS: PLATELET ESTIMATE NORMAL
[2021-08-21] MEDS: QUETIAPINE FUMARATE 25MG TABLET PO SCH (22:04)
[2021-08-22] VITALS (18 sets, daily range): BP systolic 81–168; BP diastolic 26–95
[2021-08-22 06:30] LABS: BASOPHILS % 0.6 % (0.0-2.0); EOSINOPHILS % 1.4 % (0.0-5.0); HEMATOCRIT. 26.4 % (36.0-48.0); HEMOGLOBIN. 8.8 g/dL (12.0-16.0); LYMPHOCYTES % 11.5 % (20.0-50.0); MEAN CORPUSCULAR HEMOGLOBIN 28.2 pg (28.0-32.0); MEAN CORPUSCULAR VOLUME 84.7 fL (81.0-99.0); MEAN PLATELET VOLUME 10.3 fl (7.4-10.4); MONOCYTES % 5.9 % (2.0-8.0); NEUTROPHILS % 80.6 % (40.0-76.0); PLATELET 186 x1000/uL (130-400); RED BLOOD CELL COUNT 3.12 mill/uL (4.2-5.4); RED CELL DISTRIBUTION WIDTH 17.7 % (11.6-14.6)
[2021-08-22] MEDS: SEVELAMER CARBONATE 800 MG TABLET PO SCH ×4 (06:43→17:25)
[2021-08-22 07:20] LABS: VITAMIN B12 SERUM > 2000.0 pg/mL (211-911)
[2021-08-22] MEDS: HYDROMORPHONE HCL/PF 2MG/ML CPJ IV PRN (08:42)
[2021-08-22] MEDS: METOPROLOL TARTRATE 50MG TABLET PO SCH ×2 (09:00→20:52)
[2021-08-22] MEDS: GABAPENTIN 300MG CAPSULE PO SCH ×3 (10:38→17:25)
[2021-08-22] MEDS: NIFEDIPINE XL 60MG TAB PO SCH ×2 (10:39→20:53)
[2021-08-22] MEDS: ISOSORBIDE MONONITRATE 30MG TABLET SR 24HR PO SCH (10:39)
[2021-08-22] MEDS ORDERED: LIDOCAINE HCL 1% 10 MG/ML 10ML VIAL ONE (11:03)
[2021-08-22] MEDS ORDERED: IODIXANOL 320MG/ML 100 ML BOTTLE IV ONE ×2 (11:04→12:28)
[2021-08-22 12:09] LABS: FERRITIN 27933 ng/mL (10-291)
[2021-08-22] MEDS ORDERED: MIDAZOLAM HCL 2 MG/2 ML VIAL ONE (12:23)
[2021-08-22] MEDS ORDERED: FENTANYL CITRATE/PF 50MCG/ML 2ML VIAL ONE (12:24)
[2021-08-22] MEDS ORDERED: LIDOCAINE HCL 1% 20ML VIAL (Pyxis) INJ ONE (12:29)
[2021-08-22] MEDS ORDERED: FENTANYL CITRATE/PF 50MCG/ML 5ML VIAL ONE (13:10)
[2021-08-22] MEDS ORDERED: MIDAZOLAM HCL 5 MG/5 ML VIAL ONE (13:11)
[2021-08-22] MEDS: QUETIAPINE FUMARATE 25MG TABLET PO SCH (20:52)
[2021-08-22] MEDS: HYDROCODONE/ACETAMINOPHEN 10/325MG TABLET PO PRN (21:53)
[2021-08-23] VITALS (10 sets, daily range): BP systolic 90–156; BP diastolic 53–99
[2021-08-23 07:06] LABS: EOSINOPHILS % 5.1 % (0.0-5.0); HEMOGLOBIN. 9.4 g/dL (12.0-16.0); LYMPHOCYTES % 11.8 % (20.0-50.0); MEAN CORPUSCULAR HEMOGLOBIN 27.5 pg (28.0-32.0); MEAN CORPUSCULAR VOLUME 84.4 fL (81.0-99.0); MEAN PLATELET VOLUME 10.1 fl (7.4-10.4); MONOCYTES % 8.4 % (2.0-8.0); NEUTROPHILS % 73.7 % (40.0-76.0); PLATELET 256 x1000/uL (130-400); RED BLOOD CELL COUNT 3.43 mill/uL (4.2-5.4); RED CELL DISTRIBUTION WIDTH 17.4 % (11.6-14.6)
[2021-08-23] MEDS: SEVELAMER CARBONATE 800 MG TABLET PO SCH ×3 (08:20→17:12)
[2021-08-23] MEDS: GABAPENTIN 300MG CAPSULE PO SCH ×3 (08:20→17:12)
[2021-08-23] MEDS: NIFEDIPINE XL 60MG TAB PO SCH ×2 (08:21→20:59)
[2021-08-23] MEDS: ISOSORBIDE MONONITRATE 30MG TABLET SR 24HR PO SCH (08:21)
[2021-08-23] MEDS: METOPROLOL TARTRATE 50MG TABLET PO SCH ×2 (08:21→20:58)
[2021-08-23] MEDS ORDERED: DIATR MEGLU/DIATRIZOATE SOLN 30ML PO NR (09:15)
[2021-08-23] MEDS: LEVOFLOXACIN 500MG PREMIX 100 ML IV SCH (11:08)
[2021-08-23] MEDS ORDERED: IOHEXOL-300 100 ML BOTTLE ONE (14:39)
[2021-08-23] MEDS ORDERED: BISACODYL 10MG SUPP PR NR (19:45)
[2021-08-23] MEDS ORDERED: BISACODYL 5MG TABLET PO NR (19:45)
[2021-08-23] MEDS: QUETIAPINE FUMARATE 25MG TABLET PO SCH (20:59)
[2021-08-23] MEDS: HYDROCODONE/ACETAMINOPHEN 10/325MG TABLET PO PRN (20:59)
[2021-08-23] MEDS: SENNOSIDES/DOCUSATE SOD 8.6/50MG TABLET PO SCH (20:59)
[2021-08-23] MEDS: LACTULOSE 20G/30ML UDC PO SCH (21:01)
[2021-08-23] MEDS ORDERED: LORAZEPAM 2MG/ML CPJ IV PRN (22:53)
[2021-08-24] VITALS (13 sets, daily range): BP systolic 93–152; BP diastolic 39–84
[2021-08-24] MEDS: METOCLOPRAMIDE HCL 10MG/2ML VIAL IV SCH ×5 (00:26→23:55)
[2021-08-24] MEDS: LACTULOSE 20G/30ML UDC PO SCH ×3 (05:36→22:00)
[2021-08-24] MEDS: ACETAMINOPHEN 325MG TABLET PO PRN (05:57)
[2021-08-24] MEDS ORDERED: BISACODYL 10MG SUPP PR NR ×2 (06:00→14:00)
[2021-08-24] MEDS: SEVELAMER CARBONATE 800 MG TABLET PO SCH ×4 (07:20→17:18)
[2021-08-24 08:28] LABS: HEMOGLOBIN. 9.8 g/dL (12.0-16.0); MEAN CORPUSCULAR HEMOGLOBIN 27.9 pg (28.0-32.0); MEAN PLATELET VOLUME 10.5 fl (7.4-10.4); PLATELET 269 x1000/uL (130-400); RED BLOOD CELL COUNT 3.52 mill/uL (4.2-5.4); RED CELL DISTRIBUTION WIDTH 17.9 % (11.6-14.6)
[2021-08-24] MEDS: GABAPENTIN 300MG CAPSULE PO SCH ×3 (08:53→12:04)
[2021-08-24] MEDS: METOPROLOL TARTRATE 50MG TABLET PO SCH ×3 (08:54→21:00)
[2021-08-24] MEDS: NIFEDIPINE XL 60MG TAB PO SCH ×3 (08:54→21:00)
[2021-08-24] MEDS: ISOSORBIDE MONONITRATE 30MG TABLET SR 24HR PO SCH ×2 (08:54→09:45)
[2021-08-24 12:37] LABS: PLATELET ESTIMATE NORMAL
[2021-08-24] MEDS ORDERED: BISACODYL 5MG TABLET PO NR (18:00)
[2021-08-24] MEDS: QUETIAPINE FUMARATE 25MG TABLET PO SCH (21:00)
[2021-08-24] MEDS: SENNOSIDES/DOCUSATE SOD 8.6/50MG TABLET PO SCH (21:00)
[2021-08-24] MEDS ORDERED: ACETAMINOPHEN 650MG SUPP PR PRN (21:45)
[2021-08-24] MEDS ORDERED: VANCOMYCIN 1 G PREMIX 200 ML IV NR (23:30)
[2021-08-24 23:38] LABS: BASOPHILS % 0.2 % (0.0-2.0); EOSINOPHILS % 0.3 % (0.0-5.0); HEMATOCRIT. 26.5 % (36.0-48.0); HEMOGLOBIN. 8.5 g/dL (12.0-16.0); LYMPHOCYTES % 8.3 % (20.0-50.0); MEAN CORPUSCULAR HEMOGLOBIN 27.6 pg (28.0-32.0); MEAN CORPUSCULAR VOLUME 85.6 fL (81.0-99.0); MEAN PLATELET VOLUME 10.1 fl (7.4-10.4); MONOCYTES % 10.6 % (2.0-8.0); NEUTROPHILS % 80.6 % (40.0-76.0); PLATELET 241 x1000/uL (130-400); RED BLOOD CELL COUNT 3.09 mill/uL (4.2-5.4); RED CELL DISTRIBUTION WIDTH 17.1 % (11.6-14.6)
[2021-08-25] VITALS (12 sets, daily range): BP systolic 108–146; BP diastolic 42–102
[2021-08-25] MEDS: HYDROCODONE/ACETAMINOPHEN 10/325MG TABLET PO PRN ×2 (00:12→13:33)
[2021-08-25] MEDS: METOCLOPRAMIDE HCL 10MG/2ML VIAL IV SCH (05:15)
[2021-08-25] MEDS: LACTULOSE 20G/30ML UDC PO SCH ×3 (06:34→23:11)
[2021-08-25 08:29] LABS: BASOPHILS % 0.4 % (0.0-2.0); EOSINOPHILS % 0.8 % (0.0-5.0); HEMOGLOBIN. 8.9 g/dL (12.0-16.0); LYMPHOCYTES % 10.7 % (20.0-50.0); MEAN CORPUSCULAR HEMOGLOBIN 27.7 pg (28.0-32.0); MEAN CORPUSCULAR VOLUME 87.5 fL (81.0-99.0); MEAN PLATELET VOLUME 10.9 fl (7.4-10.4); MONOCYTES % 11.6 % (2.0-8.0); NEUTROPHILS % 76.5 % (40.0-76.0); PLATELET 231 x1000/uL (130-400); RED BLOOD CELL COUNT 3.21 mill/uL (4.2-5.4); RED CELL DISTRIBUTION WIDTH 17.4 % (11.6-14.6)
[2021-08-25] MEDS: SEVELAMER CARBONATE 800 MG TABLET PO SCH ×3 (08:32→17:20)
[2021-08-25] MEDS: METOPROLOL TARTRATE 50MG TABLET PO SCH ×2 (08:33→23:10)
[2021-08-25] MEDS: ISOSORBIDE MONONITRATE 30MG TABLET SR 24HR PO SCH (08:33)
[2021-08-25] MEDS: NIFEDIPINE XL 60MG TAB PO SCH ×2 (08:33→23:11)
[2021-08-25] MEDS: HYDROMORPHONE HCL/PF 2MG/ML CPJ IV PRN (08:34)
[2021-08-25] MEDS ORDERED: SORBITOL 70% SOLN 30ML PO NR (09:45)
[2021-08-25] MEDS ORDERED: DEXTROSE 50% WATER 50ML SYRINGE IV PRN ×2 (10:45)
[2021-08-25] MEDS: INSULIN LISPRO 100 UNITS/ML SUBCUT SCH ×3 (12:20→23:13)
[2021-08-25] MEDS: BLOOD SUGAR DIAGNOSTIC STRIP TEST SCH ×3 (12:28→21:00)
[2021-08-25] MEDS: POLYETHYLENE GLYCOL 3350 (17GM) 1 DOSE PACK PO SCH (13:24)
[2021-08-25] MEDS: LEVOFLOXACIN 500MG PREMIX 100 ML IV SCH (13:26)
[2021-08-25] MEDS ORDERED: VANCOMYCIN 500 MG PREMIX 100 ML IV SCH (18:00)
[2021-08-25] MEDS: QUETIAPINE FUMARATE 25MG TABLET PO SCH (23:10)
[2021-08-25] MEDS: SENNOSIDES/DOCUSATE SOD 8.6/50MG TABLET PO SCH (23:11)
[2021-08-26] VITALS (14 sets, daily range): BP systolic 113–145; BP diastolic 41–79
[2021-08-26] MEDS: LACTULOSE 20G/30ML UDC PO SCH ×3 (05:50→20:36)
[2021-08-26] MEDS: BLOOD SUGAR DIAGNOSTIC STRIP TEST SCH ×4 (05:55→20:26)
[2021-08-26] MEDS: INSULIN LISPRO 100 UNITS/ML SUBCUT SCH ×4 (07:20→20:35)
[2021-08-26 07:54] LABS: BASOPHILS % 0.5 % (0.0-2.0); EOSINOPHILS % 2.9 % (0.0-5.0); HEMATOCRIT. 27.9 % (36.0-48.0); HEMOGLOBIN. 8.9 g/dL (12.0-16.0); LYMPHOCYTES % 9.8 % (20.0-50.0); MEAN CORPUSCULAR HEMOGLOBIN 27.6 pg (28.0-32.0); MEAN PLATELET VOLUME 9.9 fl (7.4-10.4); MONOCYTES % 7.9 % (2.0-8.0); NEUTROPHILS % 78.9 % (40.0-76.0); PLATELET 257 x1000/uL (130-400); RED BLOOD CELL COUNT 3.25 mill/uL (4.2-5.4); RED CELL DISTRIBUTION WIDTH 17.5 % (11.6-14.6)
[2021-08-26] MEDS: SEVELAMER CARBONATE 800 MG TABLET PO SCH ×3 (09:02→17:20)
[2021-08-26] MEDS: ISOSORBIDE MONONITRATE 30MG TABLET SR 24HR PO SCH (09:03)
[2021-08-26] MEDS: NIFEDIPINE XL 60MG TAB PO SCH ×2 (09:03→20:26)
[2021-08-26] MEDS: POLYETHYLENE GLYCOL 3350 (17GM) 1 DOSE PACK PO SCH (09:03)
[2021-08-26] MEDS: METOPROLOL TARTRATE 50MG TABLET PO SCH ×2 (09:03→20:26)
[2021-08-26] MEDS ORDERED: VANCOMYCIN 500 MG PREMIX 100 ML IV NR (11:30)
[2021-08-26] MEDS: ACETAMINOPHEN 325MG TABLET PO PRN (20:24)
[2021-08-26] MEDS: QUETIAPINE FUMARATE 25MG TABLET PO SCH (20:26)
[2021-08-26] MEDS: SENNOSIDES/DOCUSATE SOD 8.6/50MG TABLET PO SCH (20:26)
== END 2021-08-27 00:30 | DRG 280 ==
LOC: ER 19:36 → EDBEDREQTM 23:38 → EDBEDREQ 23:38 → EDBEDREQSVC 23:38 → ENRESERV 23:57 → 3WST 08-21 00:02 → EDBEDREQSVC 08-21 00:09 → EDBEDREQTM 08-21 00:09 → EDBEDREQDT 08-21 00:09 → ENRESERV 08-21 00:15 → 3WST 08-21 01:48
PROVIDERS: ADMIT Internal Medicine; ATTEND Internal Medicine
PROC: 30233N1 Transfusion of Nonautologous Red Blood Cells into Peripheral Vein, Percutaneous Approach (ICD-10-PCS; 2021-08-21)
PROC: 5A1D70Z Performance of Urinary Filtration, Intermittent, Less than 6 Hours Per Day (ICD-10-PCS; 2021-08-21)
PROC: 04HL33Z Insertion of Infusion Device into Left Femoral Artery, Percutaneous Approach (ICD-10-PCS; principal; 2021-08-22)
PROC: B41G1ZZ Fluoroscopy of Left Lower Extremity Arteries using Low Osmolar Contrast (ICD-10-PCS; 2021-08-22)
PROC: 5A1D70Z Performance of Urinary Filtration, Intermittent, Less than 6 Hours Per Day (ICD-10-PCS; 2021-08-23)
PROC: 5A1D70Z Performance of Urinary Filtration, Intermittent, Less than 6 Hours Per Day (ICD-10-PCS; 2021-08-25)
DX: I70.201 Unspecified atherosclerosis of native arteries of extremities, right leg (principal); E43 Unspecified severe protein-calorie malnutrition; I21.A1 Myocardial infarction type 2; I50.33 Acute on chronic diastolic (congestive) heart failure; N18.6 End stage renal disease; J96.01 Acute respiratory failure with hypoxia; G93.41 Metabolic encephalopathy; I13.2 Hypertensive heart and chronic kidney disease with heart failure and with stage 5 chronic kidney disease, or end stage renal disease; I42.9 Cardiomyopathy, unspecified; E87.1 Hypo-osmolality and hyponatremia; K92.2 Gastrointestinal hemorrhage, unspecified; D64.9 Anemia, unspecified; E87.5 Hyperkalemia; R74.01 Elevation of levels of liver transaminase levels; E11.51 Type 2 diabetes mellitus with diabetic peripheral angiopathy without gangrene; E11.22 Type 2 diabetes mellitus with diabetic chronic kidney disease; Z20.822 Contact with and (suspected) exposure to COVID-19; K59.00 Constipation, unspecified; Z79.4 Long term (current) use of insulin; Z79.899 Other long term (current) drug therapy; Z89.511 Acquired absence of right leg below knee; Z82.49 Family history of ischemic heart disease and other diseases of the circulatory system; Z83.3 Family history of diabetes mellitus; Z86.73 Personal history of transient ischemic attack (TIA), and cerebral infarction without residual deficits; Z99.2 Dependence on renal dialysis; I25.2 Old myocardial infarction; Z89.512 Acquired absence of left leg below knee; Z68.24 Body mass index [BMI] 24.0-24.9, adult
CPT/HCPCS: 36245; 36415; 71045; 74018; 74177; 75710; 80048; 80053; 80061; 80076; 80202; 82140; 82270; 82607; 82728; 82962; 83036; 83540; 83550; 83735; 83880; 84145; 84484; 85025; 85044; 85384; 86705; 86709; 86803; 86850; 86900; 86920; 87070; 87077; 87186; 87340; 87426; 97166; 99291; C1760; C1769; C1893; J1170; J1644; J1650; J1815; J1940; J1956; J2060; J2250; J2270; J2405; J2765; J3010; J3370; J3490; P9016; Q9963; Q9967

== ENCOUNTER 2021-08-28 19:59 | Inpatient (IN) | payer MEDICARE, MEDICAID ==
[~2021-08-28] VITALS: Ht 152.4 cm; Wt 63.5 kg
[2021-08-29 02:57] LABS: BASOPHILS % 0.5 % (0.0-2.0); EOSINOPHILS % 2.6 % (0.0-5.0); HEMATOCRIT. 32.9 % (36.0-48.0); HEMOGLOBIN. 10.7 g/dL (12.0-16.0); LYMPHOCYTES % 18.1 % (20.0-50.0); MEAN CORPUSCULAR HEMOGLOBIN 27.6 pg (28.0-32.0); MEAN CORPUSCULAR VOLUME 84.6 fL (81.0-99.0); MEAN PLATELET VOLUME 9.4 fl (7.4-10.4); MONOCYTES % 11.1 % (2.0-8.0); NEUTROPHILS % 67.7 % (40.0-76.0); PLATELET 321 x1000/uL (130-400); RED BLOOD CELL COUNT 3.89 mill/uL (4.2-5.4); RED CELL DISTRIBUTION WIDTH 17.2 % (11.6-14.6)
[2021-08-29 03:16] LABS: CHLORIDE 96 mEq/L (98-107)
[2021-08-29] MEDS ORDERED: CLINDAMYCIN 600MG PREMIX 50 ML IV SCH (05:15)
[2021-08-29] MEDS: CLONIDINE 0.2MG TABLET PO PRN ×2 (06:13→10:52)
[2021-08-29] MEDS: HYDRALAZINE 20MG/ML VIAL IV PRN ×2 (07:22→18:08)
[2021-08-29 08:00] VITALS: BP 213/64
[2021-08-29] MEDS ORDERED: NIFEDIPINE XL 60MG TAB PO SCH (11:00)
[2021-08-29 11:01] VITALS: BP 213/62
[2021-08-29 12:00] VITALS: BP 160/96
[2021-08-29] MEDS: SEVELAMER CARBONATE 800 MG TABLET PO SCH ×3 (12:51→18:02)
[2021-08-29] MEDS ORDERED: NALOXONE HCL 0.4MG/ML VIAL IV PRN (13:00)
[2021-08-29] MEDS: HYDROCODONE/ACETAMINOPHEN 10/325MG TABLET PO PRN (13:02)
[2021-08-29] MEDS ORDERED: HYDRALAZINE HCL 50MG TABLET PO SCH (14:00)
[2021-08-29 16:16] VITALS: BP 189/51
[2021-08-29] MEDS: NIFEDIPINE XL 60MG TAB PO SCH (17:00)
[2021-08-29 19:34] LABS: HEPATITIS B SURFACE ANTIGEN NEGATIVE
[2021-08-29 20:00] VITALS: BP_SYST 111; BP_SYST 166; BP_DIAS 52; BP_DIAS 57
[2021-08-29] MEDS: DOXAZOSIN MESYLATE 2MG TABLET PO SCH (21:00)
[2021-08-29] MEDS: HYDRALAZINE HCL 100MG TABLET PO SCH (21:17)
[2021-08-29] MEDS: MEROPENEM 1000MG in NORMAL SALINE 100ML IV SCH (21:17)
[2021-08-30] VITALS: BP 93/50
[2021-08-30 04:00] VITALS: BP 170/65
[2021-08-30] MEDS: HYDROCODONE/ACETAMINOPHEN 10/325MG TABLET PO PRN ×4 (04:57→18:32)
[2021-08-30] MEDS: HYDRALAZINE HCL 100MG TABLET PO SCH ×3 (04:58→21:12)
[2021-08-30] MEDS ORDERED: MORPHINE SULFATE 2 MG/ML CPJ (NOT FOR IM USE) IV SCH (07:30)
[2021-08-30] MEDS: SEVELAMER CARBONATE 800 MG TABLET PO SCH ×3 (07:53→18:24)
[2021-08-30 08:00] VITALS: BP 187/69
[2021-08-30] MEDS: MINOXIDIL 2.5MG TABLET PO SCH ×2 (09:11→21:11)
[2021-08-30] MEDS: NIFEDIPINE XL 60MG TAB PO SCH ×2 (09:11→21:11)
[2021-08-30] MEDS: FOLIC ACID/VITAMIN B COMP W-C TABLET PO SCH (09:11)
[2021-08-30] MEDS: ONDANSETRON HCL 4MG/2ML INJ IV PRN (11:12)
[2021-08-30 11:41] LABS: EOSINOPHILS % 2.7 % (0.0-5.0); HEMATOCRIT. 33.9 % (36.0-48.0); HEMOGLOBIN. 10.8 g/dL (12.0-16.0); LYMPHOCYTES % 20.4 % (20.0-50.0); MEAN CORPUSCULAR VOLUME 84.8 fL (81.0-99.0); MEAN PLATELET VOLUME 9.5 fl (7.4-10.4); MONOCYTES % 13.4 % (2.0-8.0); NEUTROPHILS % 62.5 % (40.0-76.0); PLATELET 330 x1000/uL (130-400); RED CELL DISTRIBUTION WIDTH 17.4 % (11.6-14.6)
[2021-08-30] MEDS: DIPHENHYDRAMINE 50MG/ML VIAL IV PRN ×2 (11:53→20:15)
[2021-08-30 12:00] VITALS: BP 165/48
[2021-08-30 16:00] VITALS: BP 125/49
[2021-08-30] MEDS: MEROPENEM 1000MG in NORMAL SALINE 100ML IV SCH (18:24)
[2021-08-30 20:00] VITALS: BP 119/44
[2021-08-30] MEDS: DOXAZOSIN MESYLATE 2MG TABLET PO SCH (21:12)
[2021-08-31] VITALS: BP 143/49
[2021-08-31] MEDS: HYDROCODONE/ACETAMINOPHEN 10/325MG TABLET PO PRN ×4 (02:22→21:08)
[2021-08-31] MEDS: DIPHENHYDRAMINE 50MG/ML VIAL IV PRN ×2 (02:22→09:13)
[2021-08-31 04:00] VITALS: BP 145/42
[2021-08-31] MEDS: HYDRALAZINE HCL 100MG TABLET PO SCH ×3 (06:02→21:07)
[2021-08-31 07:19] LABS: BASOPHILS % 0.5 % (0.0-2.0); EOSINOPHILS % 3.1 % (0.0-5.0); HEMATOCRIT. 29.4 % (36.0-48.0); HEMOGLOBIN. 9.5 g/dL (12.0-16.0); LYMPHOCYTES % 17.7 % (20.0-50.0); MEAN CORPUSCULAR HEMOGLOBIN 27.5 pg (28.0-32.0); MEAN CORPUSCULAR VOLUME 85.5 fL (81.0-99.0); MONOCYTES % 13.9 % (2.0-8.0); NEUTROPHILS % 64.8 % (40.0-76.0); PLATELET 303 x1000/uL (130-400); RED BLOOD CELL COUNT 3.44 mill/uL (4.2-5.4); RED CELL DISTRIBUTION WIDTH 17.1 % (11.6-14.6)
[2021-08-31 08:00] VITALS: BP 130/47
[2021-08-31] MEDS: FOLIC ACID/VITAMIN B COMP W-C TABLET PO SCH (09:09)
[2021-08-31] MEDS: SEVELAMER CARBONATE 800 MG TABLET PO SCH ×3 (09:10→18:06)
[2021-08-31] MEDS: MINOXIDIL 2.5MG TABLET PO SCH ×2 (09:12→21:07)
[2021-08-31] MEDS: NIFEDIPINE XL 60MG TAB PO SCH ×2 (09:12→21:08)
[2021-08-31] MEDS: FLUOXETINE HCL 10 MG CAPSULE PO SCH (10:04)
[2021-08-31 12:00] VITALS: BP 129/49
[2021-08-31] MEDS: GABAPENTIN 100MG CAPSULE PO SCH ×2 (13:31→21:10)
[2021-08-31 16:00] VITALS: BP 114/37
[2021-08-31] MEDS: MEROPENEM 1000MG in NORMAL SALINE 100ML IV SCH (18:07)
[2021-08-31 20:00] VITALS: BP 113/41
[2021-08-31] MEDS: TEMAZEPAM 15MG CAPSULE PO PRN (21:07)
[2021-08-31] MEDS: DOXAZOSIN MESYLATE 2MG TABLET PO SCH (21:08)
[2021-08-31] MEDS ORDERED: MORPHINE SULFATE 2 MG/ML CPJ (NOT FOR IM USE) IV NR (22:45)
[2021-09-01] VITALS: BP 103/37
[2021-09-01] MEDS: HYDROCODONE/ACETAMINOPHEN 10/325MG TABLET PO PRN ×3 (01:17→20:29)
[2021-09-01] MEDS: DIPHENHYDRAMINE 50MG/ML VIAL IV PRN (01:18)
[2021-09-01 04:00] VITALS: BP 94/62
[2021-09-01] MEDS ORDERED: NALOXONE HCL 0.4MG/ML VIAL IV PRN (06:00)
[2021-09-01] MEDS: HYDRALAZINE HCL 100MG TABLET PO SCH ×3 (06:00→22:00)
[2021-09-01] MEDS: GABAPENTIN 100MG CAPSULE PO SCH ×3 (06:22→20:27)
[2021-09-01] MEDS: MORPHINE SULFATE 2 MG/ML CPJ (NOT FOR IM USE) IV PRN ×2 (06:27→10:39)
[2021-09-01 06:45] VITALS: BP 110/52
[2021-09-01 07:17] LABS: HEMATOCRIT. 24.5 % (36.0-48.0); MEAN CORPUSCULAR HEMOGLOBIN 27.7 pg (28.0-32.0); MEAN CORPUSCULAR VOLUME 84.9 fL (81.0-99.0); MEAN PLATELET VOLUME 9.3 fl (7.4-10.4); PLATELET 278 x1000/uL (130-400); RED BLOOD CELL COUNT 2.89 mill/uL (4.2-5.4); RED CELL DISTRIBUTION WIDTH 16.8 % (11.6-14.6)
[2021-09-01] MEDS: FLUOXETINE HCL 10 MG CAPSULE PO SCH (08:27)
[2021-09-01] MEDS: SEVELAMER CARBONATE 800 MG TABLET PO SCH ×3 (08:27→17:17)
[2021-09-01] MEDS: FOLIC ACID/VITAMIN B COMP W-C TABLET PO SCH (08:27)
[2021-09-01] MEDS: NIFEDIPINE XL 60MG TAB PO SCH ×2 (08:28→20:27)
[2021-09-01] MEDS: MINOXIDIL 2.5MG TABLET PO SCH (08:28)
[2021-09-01 12:00] VITALS: BP 114/49
[2021-09-01 13:54] LABS: NUCLEATED RED BLOOD CELLS 1 /100 WBC; PLATELET ESTIMATE NORMAL
[2021-09-01] MEDS: MEROPENEM 1000MG in NORMAL SALINE 100ML IV SCH (17:17)
[2021-09-01 20:00] VITALS: BP 110/53
[2021-09-01] MEDS: DOXAZOSIN MESYLATE 2MG TABLET PO SCH (20:27)
[2021-09-02] VITALS: BP 126/67
[2021-09-02] MEDS: HYDROCODONE/ACETAMINOPHEN 10/325MG TABLET PO PRN ×3 (01:34→10:34)
[2021-09-02 04:00] VITALS: BP 127/56
[2021-09-02] MEDS: GABAPENTIN 100MG CAPSULE PO SCH ×3 (06:15→22:37)
[2021-09-02] MEDS: HYDRALAZINE HCL 100MG TABLET PO SCH ×2 (06:15→14:00)
[2021-09-02] MEDS: SEVELAMER CARBONATE 800 MG TABLET PO SCH ×3 (06:15→18:16)
[2021-09-02] MEDS: NIFEDIPINE XL 60MG TAB PO SCH ×3 (09:00→21:00)
[2021-09-02] MEDS: FLUOXETINE HCL 10 MG CAPSULE PO SCH (09:59)
[2021-09-02] MEDS: FOLIC ACID/VITAMIN B COMP W-C TABLET PO SCH (10:05)
[2021-09-02] MEDS ORDERED: HYDROCODONE/ACETAMINOPHEN 10/325MG TABLET PO PRN (11:15)
[2021-09-02] MEDS ORDERED: HYDROMORPHONE HCL/PF 2MG/ML CPJ IV SCH (11:15)
[2021-09-02 11:45] LABS: HEMATOCRIT. 26.1 % (36.0-48.0); HEMOGLOBIN. 8.2 g/dL (12.0-16.0); MEAN CORPUSCULAR HEMOGLOBIN 27.1 pg (28.0-32.0); MEAN CORPUSCULAR VOLUME 86.4 fL (81.0-99.0); MEAN PLATELET VOLUME 9.1 fl (7.4-10.4); PLATELET 310 x1000/uL (130-400); RED BLOOD CELL COUNT 3.02 mill/uL (4.2-5.4)
[2021-09-02 13:11] LABS: PLATELET ESTIMATE NORMAL
[2021-09-02 16:00] VITALS: BP 118/51
[2021-09-02] MEDS: MEROPENEM 1000MG in NORMAL SALINE 100ML IV SCH (18:17)
[2021-09-02 20:00] VITALS: BP 109/53
[2021-09-02] MEDS: DOXAZOSIN MESYLATE 2MG TABLET PO SCH (21:00)
[2021-09-02] MEDS: OXYCODONE HCL 5MG TABLET PO PRN (23:28)
[2021-09-03] VITALS: BP_SYST 111; BP_SYST 118; BP_DIAS 37; BP_DIAS 66
[2021-09-03 04:00] VITALS: BP 164/84
[2021-09-03] MEDS: OXYCODONE HCL 5MG TABLET PO PRN ×3 (04:42→19:13)
[2021-09-03] MEDS: GABAPENTIN 100MG CAPSULE PO SCH ×3 (05:24→20:36)
[2021-09-03 06:43] LABS: BASOPHILS % 1.1 % (0.0-2.0); EOSINOPHILS % 6.7 % (0.0-5.0); HEMATOCRIT. 25.6 % (36.0-48.0); HEMOGLOBIN. 8.1 g/dL (12.0-16.0); LYMPHOCYTES % 13.1 % (20.0-50.0); MEAN CORPUSCULAR HEMOGLOBIN 27.9 pg (28.0-32.0); MEAN CORPUSCULAR VOLUME 87.5 fL (81.0-99.0); MONOCYTES % 13.5 % (2.0-8.0); NEUTROPHILS % 65.6 % (40.0-76.0); PLATELET 313 x1000/uL (130-400); RED BLOOD CELL COUNT 2.92 mill/uL (4.2-5.4); RED CELL DISTRIBUTION WIDTH 17.4 % (11.6-14.6)
[2021-09-03 08:00] VITALS: BP 160/67
[2021-09-03] MEDS: FOLIC ACID/VITAMIN B COMP W-C TABLET PO SCH (09:02)
[2021-09-03] MEDS: SEVELAMER CARBONATE 800 MG TABLET PO SCH ×3 (09:02→17:58)
[2021-09-03] MEDS: NIFEDIPINE XL 60MG TAB PO SCH ×2 (09:02→20:36)
[2021-09-03] MEDS: FLUOXETINE HCL 10 MG CAPSULE PO SCH (09:48)
[2021-09-03 12:00] VITALS: BP 165/54
[2021-09-03 16:00] VITALS: BP 160/50
[2021-09-03] MEDS: MEROPENEM 1000MG in NORMAL SALINE 100ML IV SCH (18:02)
[2021-09-03 20:00] VITALS: BP 160/58
[2021-09-03] MEDS: ACETAMINOPHEN 325MG TABLET PO PRN (20:44)
[2021-09-03] MEDS: ONDANSETRON HCL 4MG/2ML INJ IV PRN (20:48)
[2021-09-03] MEDS: TEMAZEPAM 15MG CAPSULE PO PRN (23:44)
[2021-09-03] MEDS: DOXAZOSIN MESYLATE 2MG TABLET PO SCH (23:45)
[2021-09-04 04:00] VITALS: BP 120/56
[2021-09-04 07:24] LABS: BASOPHILS % 0.9 % (0.0-2.0); EOSINOPHILS % 6.2 % (0.0-5.0); HEMATOCRIT. 24.2 % (36.0-48.0); HEMOGLOBIN. 7.7 g/dL (12.0-16.0); LYMPHOCYTES % 14.8 % (20.0-50.0); MEAN CORPUSCULAR HEMOGLOBIN 27.5 pg (28.0-32.0); MEAN PLATELET VOLUME 9.6 fl (7.4-10.4); MONOCYTES % 7.8 % (2.0-8.0); NEUTROPHILS % 70.3 % (40.0-76.0); PLATELET 301 x1000/uL (130-400); RED BLOOD CELL COUNT 2.78 mill/uL (4.2-5.4); RED CELL DISTRIBUTION WIDTH 17.5 % (11.6-14.6)
[2021-09-04] MEDS: OXYCODONE HCL 5MG TABLET PO PRN (07:32)
[2021-09-04 08:00] VITALS: BP 95/50
[2021-09-04] MEDS: GABAPENTIN 100MG CAPSULE PO SCH ×3 (08:30→21:55)
[2021-09-04] MEDS: FLUOXETINE HCL 10 MG CAPSULE PO SCH (08:30)
[2021-09-04] MEDS: FOLIC ACID/VITAMIN B COMP W-C TABLET PO SCH (08:30)
[2021-09-04] MEDS: NIFEDIPINE XL 60MG TAB PO SCH (08:30)
[2021-09-04] MEDS: SEVELAMER CARBONATE 800 MG TABLET PO SCH ×3 (08:30→17:58)
[2021-09-04 10:09] VITALS: BP 129/50
[2021-09-04] MEDS ORDERED: HYDRALAZINE 10 MG in SODIUM CHLORIDE 0.9% 49.5 ML IV PRN (11:15)
[2021-09-04 12:00] VITALS: BP 115/43
[2021-09-04] MEDS: ACETAMINOPHEN 325MG TABLET PO PRN (14:34)
[2021-09-04 16:00] VITALS: BP 129/42
[2021-09-04] MEDS ORDERED: SODIUM CHLORIDE 0.9% 500 ML IV ONE (18:45)
[2021-09-04] MEDS: MIDODRINE HCL 5MG TABLET PO SCH (18:56)
[2021-09-04 20:00] VITALS: BP 135/47
[2021-09-04] MEDS: DOXAZOSIN MESYLATE 2MG TABLET PO SCH (21:55)
[2021-09-04] MEDS ORDERED: MIDODRINE HCL 5MG TABLET PO SCH (22:00)
[2021-09-04] MEDS: ONDANSETRON HCL 4MG/2ML INJ IV PRN (22:24)
[2021-09-05] VITALS: BP 140/53
[2021-09-05 04:00] VITALS: BP 133/50
[2021-09-05] MEDS: GABAPENTIN 100MG CAPSULE PO SCH ×3 (05:31→21:55)
[2021-09-05] MEDS: MIDODRINE HCL 5MG TABLET PO SCH ×3 (05:32→21:55)
[2021-09-05] MEDS: OXYCODONE HCL 5MG TABLET PO PRN ×3 (05:32→18:23)
[2021-09-05 07:46] LABS: BASOPHILS % 0.7 % (0.0-2.0); HEMATOCRIT. 25.7 % (36.0-48.0); HEMOGLOBIN. 8.2 g/dL (12.0-16.0); LYMPHOCYTES % 12.6 % (20.0-50.0); MEAN CORPUSCULAR HEMOGLOBIN 27.6 pg (28.0-32.0); MEAN CORPUSCULAR VOLUME 86.6 fL (81.0-99.0); MEAN PLATELET VOLUME 9.8 fl (7.4-10.4); MONOCYTES % 7.2 % (2.0-8.0); NEUTROPHILS % 76.5 % (40.0-76.0); PLATELET 310 x1000/uL (130-400); RED BLOOD CELL COUNT 2.97 mill/uL (4.2-5.4); RED CELL DISTRIBUTION WIDTH 17.4 % (11.6-14.6)
[2021-09-05] MEDS: SEVELAMER CARBONATE 800 MG TABLET PO SCH ×3 (07:50→18:22)
[2021-09-05 08:00] VITALS: BP 159/40
[2021-09-05] MEDS: FOLIC ACID/VITAMIN B COMP W-C TABLET PO SCH (08:48)
[2021-09-05] MEDS: FLUOXETINE HCL 10 MG CAPSULE PO SCH (08:49)
[2021-09-05] MEDS: NIFEDIPINE XL 60MG TAB PO SCH (08:49)
[2021-09-05] MEDS ORDERED: DEXTROSE 50% WATER 50ML SYRINGE IV NR (11:15)
[2021-09-05 12:00] VITALS: BP 170/48
[2021-09-05] MEDS ORDERED: CALCIUM CHLORIDE 1,000 MG in DEXT 5% WATER 90 ML IV NR (12:00)
[2021-09-05] MEDS ORDERED: SODIUM BICARBONATE 8.4% 1 MEQ/ML 50ML SYR IV NR (12:00)
[2021-09-05] MEDS ORDERED: INSULIN REGULAR (HUMULIN R) UD 100 UNITS/ML SYR IV NR (12:00)
[2021-09-05] MEDS: DEXT 5%/0.45% NACL 1000ML 1,000 ML IV SCH (12:29)
[2021-09-05 15:53] VITALS: BP 159/69
[2021-09-05] MEDS: CLONIDINE 0.2MG TABLET PO PRN (18:22)
[2021-09-05 20:00] VITALS: BP 156/53
[2021-09-05] MEDS: EPOETIN ALFA-EPBX 10,000 UNIT/ML VIAL SUBCUT SCH (21:54)
[2021-09-05] MEDS: DOXAZOSIN MESYLATE 2MG TABLET PO SCH (21:55)
[2021-09-06] VITALS: BP 123/72
[2021-09-06 04:00] VITALS: BP 153/54
[2021-09-06] MEDS: MIDODRINE HCL 5MG TABLET PO SCH ×3 (06:00→21:39)
[2021-09-06] MEDS: OXYCODONE HCL 5MG TABLET PO PRN ×4 (06:36→21:40)
[2021-09-06] MEDS: GABAPENTIN 100MG CAPSULE PO SCH ×3 (06:36→21:39)
[2021-09-06 07:32] LABS: BASOPHILS % 1.3 % (0.0-2.0); EOSINOPHILS % 9.6 % (0.0-5.0); HEMATOCRIT. 24.7 % (36.0-48.0); HEMOGLOBIN. 7.9 g/dL (12.0-16.0); LYMPHOCYTES % 24.3 % (20.0-50.0); MEAN CORPUSCULAR HEMOGLOBIN 27.4 pg (28.0-32.0); MEAN CORPUSCULAR VOLUME 85.8 fL (81.0-99.0); MEAN PLATELET VOLUME 9.9 fl (7.4-10.4); MONOCYTES % 12.7 % (2.0-8.0); NEUTROPHILS % 52.1 % (40.0-76.0); PLATELET 293 x1000/uL (130-400); RED BLOOD CELL COUNT 2.87 mill/uL (4.2-5.4); RED CELL DISTRIBUTION WIDTH 17.1 % (11.6-14.6)
[2021-09-06 08:00] VITALS: BP 146/60
[2021-09-06] MEDS: NIFEDIPINE XL 60MG TAB PO SCH (09:45)
[2021-09-06] MEDS: SEVELAMER CARBONATE 800 MG TABLET PO SCH ×3 (09:45→18:24)
[2021-09-06] MEDS: FOLIC ACID/VITAMIN B COMP W-C TABLET PO SCH (09:45)
[2021-09-06] MEDS: FLUOXETINE HCL 10 MG CAPSULE PO SCH (09:45)
[2021-09-06] MEDS: ONDANSETRON HCL 4MG/2ML INJ IV PRN (09:50)
[2021-09-06 12:00] VITALS: BP 147/44
[2021-09-06] MEDS: DEXT 5%/0.45% NACL 1000ML 1,000 ML IV SCH (12:42)
[2021-09-06 16:00] VITALS: BP 155/52
[2021-09-06 20:00] VITALS: BP 132/46
[2021-09-06] MEDS: DOXAZOSIN MESYLATE 2MG TABLET PO SCH (21:38)
[2021-09-06] MEDS ORDERED: DEXTROSE 50% WATER 50ML SYRINGE IV PRN (22:00)
[2021-09-06] MEDS: BLOOD SUGAR DIAGNOSTIC STRIP TEST SCH (22:08)
[2021-09-06] MEDS: INSULIN LISPRO 100 UNITS/ML SUBCUT SCH (22:25)
[2021-09-07] VITALS (14 sets, daily range): BP systolic 93–188; BP diastolic 34–79
[2021-09-07] MEDS: ONDANSETRON HCL 4MG/2ML INJ IV PRN (01:49)
[2021-09-07] MEDS: OXYCODONE HCL 5MG TABLET PO PRN ×3 (01:50→18:06)
[2021-09-07] MEDS ORDERED: MORPHINE SULFATE 2 MG/ML CPJ (NOT FOR IM USE) IV SCH (02:15)
[2021-09-07] MEDS: MIDODRINE HCL 5MG TABLET PO SCH ×3 (06:00→22:00)
[2021-09-07] MEDS: GABAPENTIN 100MG CAPSULE PO SCH ×3 (06:08→22:49)
[2021-09-07] MEDS: INSULIN LISPRO 100 UNITS/ML SUBCUT SCH ×4 (07:01→20:30)
[2021-09-07] MEDS: BLOOD SUGAR DIAGNOSTIC STRIP TEST SCH ×4 (07:01→20:30)
[2021-09-07] MEDS: SEVELAMER CARBONATE 800 MG TABLET PO SCH ×3 (10:24→18:00)
[2021-09-07] MEDS: NIFEDIPINE XL 60MG TAB PO SCH (10:24)
[2021-09-07] MEDS: FOLIC ACID/VITAMIN B COMP W-C TABLET PO SCH (10:24)
[2021-09-07] MEDS: FLUOXETINE HCL 10 MG CAPSULE PO SCH (10:24)
[2021-09-07] MEDS: DEXT 5%/0.45% NACL 1000ML 1,000 ML IV SCH (10:25)
[2021-09-07 12:24] LABS: BASOPHILS % 0.8 % (0.0-2.0); EOSINOPHILS % 4.8 % (0.0-5.0); HEMATOCRIT. 22.4 % (36.0-48.0); HEMOGLOBIN. 7.1 g/dL (12.0-16.0); LYMPHOCYTES % 17.9 % (20.0-50.0); MEAN CORPUSCULAR HEMOGLOBIN 26.9 pg (28.0-32.0); MEAN CORPUSCULAR VOLUME 84.6 fL (81.0-99.0); MEAN PLATELET VOLUME 9.9 fl (7.4-10.4); MONOCYTES % 9.7 % (2.0-8.0); NEUTROPHILS % 66.8 % (40.0-76.0); PLATELET 294 x1000/uL (130-400); RED BLOOD CELL COUNT 2.65 mill/uL (4.2-5.4)
[2021-09-07] MEDS: CLONIDINE 0.2MG TABLET PO PRN (13:11)
[2021-09-07] MEDS ORDERED: POTASSIUM CHLORIDE 20MEQ/PACKET PO NR (14:30)
[2021-09-07] MEDS: ACETAMINOPHEN 325MG TABLET PO PRN (16:13)
[2021-09-07] MEDS: DOXAZOSIN MESYLATE 2MG TABLET PO SCH (20:24)
[2021-09-07] MEDS: EPOETIN ALFA-EPBX 10,000 UNIT/ML VIAL SUBCUT SCH (20:24)
[2021-09-07 20:54] LABS: HEMOGLOBIN 8.8 g/dL (12.0-16.0)
[2021-09-08 00:30] VITALS: BP 138/65
[2021-09-08] MEDS ORDERED: ACETAMINOPHEN 650MG SUPP PR PRN (00:30)
[2021-09-08 01:00] VITALS: BP 121/79
[2021-09-08 01:22] LABS: HEMATOCRIT 35.7 % (36.0-48.0); HEMOGLOBIN 11.2 g/dL (12.0-16.0)
[2021-09-08 04:00] VITALS: BP 140/61
[2021-09-08] MEDS: MIDODRINE HCL 5MG TABLET PO SCH ×3 (06:00→21:50)
[2021-09-08] MEDS: GABAPENTIN 100MG CAPSULE PO SCH ×3 (06:00→21:51)
[2021-09-08] MEDS ORDERED: POLYMYXIN B SULFATE 500000 UNITS/VIAL ONE (06:17)
[2021-09-08] MEDS ORDERED: GENTAMICIN SULF 40MG/ML 2ML VIAL ONE (06:17)
[2021-09-08] MEDS: BLOOD SUGAR DIAGNOSTIC STRIP TEST SCH ×4 (06:46→19:57)
[2021-09-08] MEDS: INSULIN LISPRO 100 UNITS/ML SUBCUT SCH ×4 (06:47→19:57)
[2021-09-08] MEDS ORDERED: CLINDAMYCIN 600 MG in DEXTROSE 5% WATER 50 ML IV SCH (07:15)
[2021-09-08] MEDS ORDERED: GLYCOPYRROLATE 0.2 MG/ML 2ML VIAL ONE (07:29)
[2021-09-08] MEDS ORDERED: VANCOMYCIN HCL 1 GM/VIAL ONE (07:40)
[2021-09-08] MEDS ORDERED: LABETALOL 5MG/ML SYR 20 MG/4 ML SYRINGE IV PRN (08:30)
[2021-09-08] MEDS ORDERED: ONDANSETRON HCL 4MG/2ML INJ IV PRN (08:30)
[2021-09-08] MEDS ORDERED: MEPERIDINE HCL/PF 25MG/ML CPJ IV PRN (08:30)
[2021-09-08] MEDS: FLUOXETINE HCL 10 MG CAPSULE PO SCH (10:39)
[2021-09-08] MEDS: SEVELAMER CARBONATE 800 MG TABLET PO SCH ×3 (10:39→18:13)
[2021-09-08] MEDS: NIFEDIPINE XL 60MG TAB PO SCH (10:41)
[2021-09-08] MEDS: FOLIC ACID/VITAMIN B COMP W-C TABLET PO SCH (10:41)
[2021-09-08] MEDS: OXYCODONE HCL 5MG TABLET PO PRN ×2 (10:42→14:56)
[2021-09-08] MEDS: DEXT 5%/0.45% NACL 1000ML 1,000 ML IV SCH (11:46)
[2021-09-08 11:52] VITALS: BP 163/54
[2021-09-08 13:01] LABS: HEMATOCRIT. 28.6 % (36.0-48.0); MEAN CORPUSCULAR HEMOGLOBIN 27.7 pg (28.0-32.0); MEAN CORPUSCULAR VOLUME 88.3 fL (81.0-99.0); MEAN PLATELET VOLUME 10.4 fl (7.4-10.4); PLATELET 273 x1000/uL (130-400); RED BLOOD CELL COUNT 3.24 mill/uL (4.2-5.4); RED CELL DISTRIBUTION WIDTH 17.3 % (11.6-14.6)
[2021-09-08] MEDS: CLONIDINE 0.2MG TABLET PO PRN (14:55)
[2021-09-08] MEDS: CLINDAMYCIN 600MG PREMIX 50 ML IV SCH ×2 (14:56→19:57)
[2021-09-08 16:00] VITALS: BP 155/55
[2021-09-08] MEDS ORDERED: MORPHINE SULFATE 2 MG/ML CPJ (NOT FOR IM USE) IV PRN (16:30)
[2021-09-08 16:38] LABS: PLATELET ESTIMATE NORMAL
[2021-09-08] MEDS: LORAZEPAM 1MG TABLET PO PRN (18:14)
[2021-09-08] MEDS: ACETAMINOPHEN 325MG TABLET PO PRN (19:58)
[2021-09-08 20:00] VITALS: BP 121/71
[2021-09-08] MEDS: DOXAZOSIN MESYLATE 2MG TABLET PO SCH (20:22)
[2021-09-08 23:53] LABS: HEMATOCRIT 23.5 % (36.0-48.0); HEMOGLOBIN 7.6 g/dL (12.0-16.0)
[2021-09-09 00:44] VITALS: BP 112/42
[2021-09-09] MEDS: MORPHINE SULFATE 2 MG/ML CPJ (NOT FOR IM USE) IV PRN ×4 (03:01→23:41)
[2021-09-09 04:00] VITALS: BP 128/45
[2021-09-09] MEDS: CLINDAMYCIN 600MG PREMIX 50 ML IV SCH (05:07)
[2021-09-09] MEDS: MIDODRINE HCL 5MG TABLET PO SCH ×3 (05:08→21:14)
[2021-09-09] MEDS: LORAZEPAM 1MG TABLET PO PRN ×2 (05:17→23:05)
[2021-09-09] MEDS: GABAPENTIN 100MG CAPSULE PO SCH ×3 (05:18→21:13)
[2021-09-09] MEDS: INSULIN LISPRO 100 UNITS/ML SUBCUT SCH ×4 (05:32→21:00)
[2021-09-09] MEDS: BLOOD SUGAR DIAGNOSTIC STRIP TEST SCH ×4 (05:32→21:13)
[2021-09-09 08:00] VITALS: BP 142/50
[2021-09-09 09:08] LABS: BASOPHILS % 0.7 % (0.0-2.0); EOSINOPHILS % 2.9 % (0.0-5.0); HEMATOCRIT. 24.8 % (36.0-48.0); LYMPHOCYTES % 11.6 % (20.0-50.0); MEAN CORPUSCULAR HEMOGLOBIN 28.7 pg (28.0-32.0); MEAN PLATELET VOLUME 10.7 fl (7.4-10.4); NEUTROPHILS % 75.8 % (40.0-76.0); PLATELET 235 x1000/uL (130-400); RED BLOOD CELL COUNT 2.79 mill/uL (4.2-5.4); RED CELL DISTRIBUTION WIDTH 17.5 % (11.6-14.6)
[2021-09-09] MEDS: SEVELAMER CARBONATE 800 MG TABLET PO SCH ×3 (09:35→18:07)
[2021-09-09] MEDS: FOLIC ACID/VITAMIN B COMP W-C TABLET PO SCH (09:35)
[2021-09-09] MEDS: NIFEDIPINE XL 60MG TAB PO SCH (09:36)
[2021-09-09] MEDS: FLUOXETINE HCL 10 MG CAPSULE PO SCH (09:40)
[2021-09-09 12:00] VITALS: BP 157/50
[2021-09-09] MEDS: OXYCODONE HCL 5MG TABLET PO PRN ×2 (14:13→21:14)
[2021-09-09] MEDS: DEXT 5%/0.45% NACL 1000ML 1,000 ML IV SCH (14:14)
[2021-09-09 18:00] VITALS: BP 150/55
[2021-09-09 20:00] VITALS: BP 164/66
[2021-09-09] MEDS: DOXAZOSIN MESYLATE 2MG TABLET PO SCH (21:13)
[2021-09-10 04:00] VITALS: BP 125/55
[2021-09-10] MEDS: MORPHINE SULFATE 2 MG/ML CPJ (NOT FOR IM USE) IV PRN ×3 (05:09→15:06)
[2021-09-10] MEDS: MIDODRINE HCL 5MG TABLET PO SCH ×2 (06:00→14:00)
[2021-09-10] MEDS: BLOOD SUGAR DIAGNOSTIC STRIP TEST SCH ×3 (06:35→17:20)
[2021-09-10] MEDS: GABAPENTIN 100MG CAPSULE PO SCH ×2 (06:35→15:05)
[2021-09-10] MEDS: OXYCODONE HCL 5MG TABLET PO PRN (06:46)
[2021-09-10 07:24] LABS: BASOPHILS % 0.7 % (0.0-2.0); EOSINOPHILS % 4.8 % (0.0-5.0); HEMATOCRIT. 24.2 % (36.0-48.0); LYMPHOCYTES % 14.9 % (20.0-50.0); MEAN CORPUSCULAR VOLUME 87.8 fL (81.0-99.0); MEAN PLATELET VOLUME 10.4 fl (7.4-10.4); MONOCYTES % 10.5 % (2.0-8.0); NEUTROPHILS % 69.1 % (40.0-76.0); PLATELET 263 x1000/uL (130-400); RED BLOOD CELL COUNT 2.75 mill/uL (4.2-5.4); RED CELL DISTRIBUTION WIDTH 17.5 % (11.6-14.6)
[2021-09-10] MEDS: INSULIN LISPRO 100 UNITS/ML SUBCUT SCH ×3 (07:50→17:43)
[2021-09-10 08:00] VITALS: BP 143/66
[2021-09-10] MEDS: SEVELAMER CARBONATE 800 MG TABLET PO SCH ×3 (09:50→18:43)
[2021-09-10] MEDS: FOLIC ACID/VITAMIN B COMP W-C TABLET PO SCH (09:50)
[2021-09-10] MEDS: NIFEDIPINE XL 60MG TAB PO SCH (09:50)
[2021-09-10] MEDS: FLUOXETINE HCL 10 MG CAPSULE PO SCH (09:50)
[2021-09-10] MEDS: DEXT 5%/0.45% NACL 1000ML 1,000 ML IV SCH (11:15)
[2021-09-10 12:00] VITALS: BP 121/81
[2021-09-10 13:28] VITALS: BP 121/81
[2021-09-10] MEDS ORDERED: NALOXONE HCL 0.4MG/ML VIAL IV PRN (15:45)
[2021-09-10 16:00] VITALS: BP 133/73
[2021-09-10 16:59] VITALS: BP 121/81
== END 2021-09-10 20:20 | DRG 474 ==
LOC: ER 19:59 → 8WST 08-29 05:22 → ENRESERV 08-29 07:32 → 6EST 09-04 11:01
PROVIDERS: ADMIT Internal Medicine; ATTEND Internal Medicine
PROC: 5A1D70Z Performance of Urinary Filtration, Intermittent, Less than 6 Hours Per Day (ICD-10-PCS; 2021-08-30)
PROC: 5A1D70Z Performance of Urinary Filtration, Intermittent, Less than 6 Hours Per Day (ICD-10-PCS; 2021-09-01)
PROC: 5A1D70Z Performance of Urinary Filtration, Intermittent, Less than 6 Hours Per Day (ICD-10-PCS; 2021-09-04)
PROC: 5A1D70Z Performance of Urinary Filtration, Intermittent, Less than 6 Hours Per Day (ICD-10-PCS; 2021-09-05)
PROC: 5A1D70Z Performance of Urinary Filtration, Intermittent, Less than 6 Hours Per Day (ICD-10-PCS; 2021-09-07)
PROC: 30233N1 Transfusion of Nonautologous Red Blood Cells into Peripheral Vein, Percutaneous Approach (ICD-10-PCS; 2021-09-07)
PROC: 0Y6C0Z1 Detachment at Right Upper Leg, High, Open Approach (ICD-10-PCS; principal; 2021-09-08)
PROC: 5A1D70Z Performance of Urinary Filtration, Intermittent, Less than 6 Hours Per Day (ICD-10-PCS; 2021-09-10)
DX: T87.81 Dehiscence of amputation stump (principal); E43 Unspecified severe protein-calorie malnutrition; N18.6 End stage renal disease; G93.41 Metabolic encephalopathy; J96.00 Acute respiratory failure, unspecified whether with hypoxia or hypercapnia; I13.2 Hypertensive heart and chronic kidney disease with heart failure and with stage 5 chronic kidney disease, or end stage renal disease; E87.1 Hypo-osmolality and hyponatremia; L97.429 Non-pressure chronic ulcer of left heel and midfoot with unspecified severity; Z16.12 Extended spectrum beta lactamase (ESBL) resistance; T87.43 Infection of amputation stump, right lower extremity; I16.0 Hypertensive urgency; D64.9 Anemia, unspecified; R74.01 Elevation of levels of liver transaminase levels; F03.90 Unspecified dementia, unspecified severity, without behavioral disturbance, psychotic disturbance, mood disturbance, and anxiety; F41.9 Anxiety disorder, unspecified; E87.6 Hypokalemia; E87.5 Hyperkalemia; G47.00 Insomnia, unspecified; E11.621 Type 2 diabetes mellitus with foot ulcer; R00.1 Bradycardia, unspecified; E11.22 Type 2 diabetes mellitus with diabetic chronic kidney disease; B96.20 Unspecified Escherichia coli [E. coli] as the cause of diseases classified elsewhere; E87.8 Other disorders of electrolyte and fluid balance, not elsewhere classified; I70.244 Atherosclerosis of native arteries of left leg with ulceration of heel and midfoot; I70.201 Unspecified atherosclerosis of native arteries of extremities, right leg; Z20.822 Contact with and (suspected) exposure to COVID-19; G54.6 Phantom limb syndrome with pain; F32.9 Major depressive disorder, single episode, unspecified; R19.7 Diarrhea, unspecified; I50.9 Heart failure, unspecified; I95.9 Hypotension, unspecified; Y83.5 Amputation of limb(s) as the cause of abnormal reaction of the patient, or of later complication, without mention of misadventure at the time of the procedure; Z82.49 Family history of ischemic heart disease and other diseases of the circulatory system; Z83.3 Family history of diabetes mellitus; Z99.2 Dependence on renal dialysis; Z86.73 Personal history of transient ischemic attack (TIA), and cerebral infarction without residual deficits; Z68.27 Body mass index [BMI] 27.0-27.9, adult; Z88.0 Allergy status to penicillin; Z79.899 Other long term (current) drug therapy; Y92.89 Other specified places as the place of occurrence of the external cause
CPT/HCPCS: 36415; 71045; 80048; 80053; 82962; 83036; 83605; 84132; 84145; 84484; 85014; 85018; 85025; 86705; 86709; 86803; 86850; 86900; 86920; 87340; 87426; 88307; 88311; 93005; 99285; C1893; J0360; J0885; J1170; J1200; J1580; J1815; J2175; J2185; J2270; J2405; J3370; J3490; J7040; J7060; P9016